=== PATIENT | male | born 1955 | race Caucasian/White ===

== ENCOUNTER 2019-05-21 19:08 | Inpatient (IN) | payer BC, MEDICARE, SELFPAY ==
--- NOTE | ~2019-05-21 | US_ITS ---
EXAMINATION: US venous doppler LE RT DATE: 05/21/2019 21:44 INDICATION: Lower limb swelling TECHNIQUE: Grayscale ultrasound images without and with compression and Doppler ultrasound images of the right lower extremity veins were obtained. COMPARISON: 12/06/2014 FINDINGS: The visualized portions of right common femoral vein, profunda (deep) femoral vein, femoral vein, pop liteal vein, gastrocnemius vein and greater saphenous vein outflow are patent. Noncompressible occlus shalini appearing deep venous thrombosis below the right knee in the paired posterior tibial and peroneal veins at the calf. IMPRESSION: 1. Deep venous thrombosis at the posterior tibial and peroneal veins at the right calf. According to documentation in report provided by [facility], Dr. Dane Beckham discussed these findings with emergency room Dr. Whitman at 9:48 PM on 05/21/2019. Reviewed, dictated and finalized at location A. NSICS TEAM DIRECTOR IMPRESSION: 1. Deep venous thrombosis at the posterior tibial and peroneal veins at the [facility] calf. According to documentation in report provided by [facility], Dr Terese Beckham discussed these findings with emergency room Dr. Whitman at 9:48 PM on 05/21/2019.
[2019-05-21 19:10] VITALS: BP 143/57; PULSE 80; RESP 18; TEMP 36.8; O2SAT 100
--- NOTE | 2019-05-21 19:27 | PC.NURSE ---
Patient reporting numbness and tingling to right lower extremity, pedal pulse able to doppler.
--- NOTE | 2019-05-21 19:29 | ED.LOWEXIN ---
HPI - Extremity Injury (Lower) General Chief Complaint: Extremity Injury, Lower Stated Complaint: DVT? Time Seen by Provider: 05/21/19 19:27 Source: patient Mode of arrival: ambulatory Limitations: no limitations History of Present Illness HPI Narrative: A 64 y/o male pt presents to the ED, with c/o pain, swelling and redness to his RLE that began on (3 days ago). Pt notes having a hx of blood clots and is prescribed Xarelto as his anticoagulation therapy, but he is unsure of the dosage. He adds that he is compliant with his medication and notes taking them this AM. Pt notes having rhinorrhea, diarrhea, and body aches, but denies fever, CP, SOB, or chest congestion. He reports having a hx of cellulitis, but states this is not the same. Pt's PCP is Dr. Sandhu. complaint: other (RLE) Onset (ago): day(s) (3) Associated symptoms: swelling (RLE) and other (redness, pain RLE) Other symptoms: other (rhinorrhea, diarrhea, body aches) Treatments prior to arrival: other (Xarelto) Related Data Allergies Allergy/AdvReac Type Severity Reaction Status Date / Time oxytetracycline Allergy Unknown Unknown Verified 05/21/19 19:15 tetracycline Allergy Unknown HIVES Verified 05/21/19 19:15 OXYTETRACYCLINE HCL Allergy Mild HIVES Uncoded 07/27/16 07:12 Review of Systems Review of Systems: All systems reviewed & are unremarkable except as noted in HPI and below Constitutional: Constitutional: Reports body ache(s) and Denies fever(s) Cardiovascular: Cardiovascular: Denies chest pain and Denies dyspnea Respiratory: Respiratory: Denies chest congestion and Reports other (rhinorrhea) Gastrointestinal: Gastrointestinal: Reports diarrhea Musculoskeletal: Musculoskeletal: Reports other (swelling, pain to RLE) Integumentary/Breasts: Skin/Breast: Reports erythema (RLE) PMFSH Past Medical History Medical History (Updated 05/21/19 @ 22:59 by Antolin Whitman DO) Arthritis Deep vein thrombosis Degenerative disc disease Hypertension Sleep apnea Surgical History Surgical History (Updated 05/21/19 @ 20:50 by VLADISLAV Gotti) History of arthroscopy of right knee History of tonsillectomy Social History Social History (Updated 05/21/19 @ 20:50 by Belkis Ulloa, [facility]) Smoking status: Former smoker Second hand tobacco smoke exposure: No Smoking end date: 03/22/10 Alcohol intake: never Living arrangements: with family Gender identity (if verbalized by the patient): Male Exam Narrative: Exam Narrative: APPEARANCE: No acute distress, nontoxic, resting in bed EYES: EOMI HEENT: Normocephalic, atraumatic, OMM RESPIRATORY: No respiratory distress Clear to auscultation bilaterally with no rhonchi wheezing or rales. CARDIOVASCULAR: Regular rate and rhythm without murmurs rubs or gallops. ABDOMINAL: Soft, nontender, nondistended, no rebound or guarding MUSCULOSKELETAl: Moves all extremities. No clubbing, cyanosis 3+ edema team of the right lower extremity, diffuse erythema of the right lower extremity from the mid foot up to just distal to the knee that is circumferential and covers greater than 50% of the extremity, no open wounds, tenderness palpation of the right calf, dorsalis pedis pulse 2+, neurovascular intact, full range of motion of the right ankle knee and hip without pain NEURO: Awake and alert. Following commands, speech normal, no focal deficits SKIN:: Warm, dry. No rashes lesions or abrasions PSYCHIATRIC: Normal affect/mood, Course Course Emergency Course: Dr. Dowling presentation work-up he agrees admission at this time Discussed with patient and family results of workup and diagnosis. Discussed need for admission. Patient and family understand and agree to current treatment plan Patient ultrasound done this evening prior to the morning results were called to Dr. Dowling Vital Signs Vital signs: Vital Signs Temperature 98.3 F 05/21/19 19:10 Pulse Rate 80 05/21/19 19:10 Respiratory Rate 18
[2019-05-21 20:40] LABS: Basophils Percent Auto 0.4 % (0.2-1.2); Hematocrit 43.1 % (42.0-52.0); Hemoglobin 13.8 g/dL (14.0-18.0); Immature Granulocyte Absolute 0.09 K/mm3 (0.00-0.031); Immature Granulocyte Percent A 0.8 % (0-0.5); Lymphocytes Absolute Auto 0.86 K/mm3 (0.9-3.2); Lymphocytes Percent Auto 7.8 % (18.3-44.2); Mean Corpuscular Hemoglobin 28.2 pg (26-34); Mean Platelet Volume 12.6 fl (7.4-10.4); Monocytes Percent Auto 8.7 % (2.6-8.5); Neutrophils Percent Auto 82.3 % (45.5-73.1); Platelet Count Result 181 k/mm3 (150-375); Red Cell Distribution Width 15.3 % (11.5-14.5)
[2019-05-21 20:51] LABS: INR 2.7; Lactic Acid Reflex 1.2 mmol/L (0.7-2.1); Prothrombin Time 28.4 Seconds (11.1-14.7)
[2019-05-21 20:52] LABS: Blood Urea Nitrogen 15 mg/dL (9-20); Calcium 9.1 mg/dL (8.4-10.2); Carbon Dioxide 27 mmol/L (22-30); Chloride 92 mmol/L (98-107); Estimated CRCL calculation 106 ml/min; Estimated Glomerular Filt Rate > 60; Glucose 123 mg/dL (75-110); Potassium 3.7 mmol/L (3.4-5.0); Sodium 135 mmol/L (137-145)
[2019-05-21 22:15] VITALS: BP 154/80; PULSE 64; RESP 16; TEMP 36.6; O2SAT 100; BMI 38.2
--- NOTE | 2019-05-21 22:27 | ADMGEN ---
This patient, Mark Coffman, was admitted to 3 Medical Room 345-01. Patient/family oriented to hospital policies and general routines including ID bracelet, bed and alarms, visiting hours, pain management, procedures, bathroom and other care routines, personal items, smoking policy, room service/diet, and visiting hours. Valuables list has been completed. Information on how to activate the Rapid Response Team has been discussed. Patient/Family are encouraged to report perceived risks to care and to ask questions if they do not understand what they are told or what they should do.
[2019-05-21 22:35] VITALS: BP 152/80; PULSE 87; RESP 18; O2SAT 98
--- NOTE | 2019-05-22 00:09 | PM.IMHP ---
H&P: HPI History of Present Illness Chief complaint: RLE redness since +++ Narrative: This is a 64 year old male with known HTN and #3 previous DVT in the past who is known to be on chronic Xarelto who presented to the hospital with a complaint of circumferential redness and swelling of his right lower leg that started approximately 3 days ago. The patient's last blood clot was over 10 years ago and he has been doing well on Xarelto. He denies missing any doses. He does report that he recently was diagnosed with RLE cellulitis about 1 month ago which did clear up with antibiotic therapy at that time. He denies any shortness of breath or chest pain. The patient underwent STAT RLE doppler U/S tonight which revealed occlusive thrombus within the peroneal and posterior tibial veins in the calf. The patient has been started on IV antibiotics in the ER tonight. He denies any other symptoms. Review of Systems Review of Systems: All systems reviewed & are unremarkable except as noted in HPI and below PMFSH Past Medical History Medical History Arthritis Deep vein thrombosis Degenerative disc disease Hypertension Sleep apnea Surgical History Surgical History History of arthroscopy of right knee History of tonsillectomy Social History Social History Smoking status: Never smoker Second hand tobacco smoke exposure: No Smoking end date: 03/22/10 Alcohol intake: never Substance use: never Living arrangements: with family Gender identity (if verbalized by the patient): Male Spiritual care concerns: No Agree to blood products: Yes Meds Home Medications and Allergies Home Medications Medication Instructions Recorded Confirmed Type rivaroxaban 20 mg tablet 20 mg PO DAILY #90 tablet 03/10/19 05/21/19 Rx simvastatin 40 mg tablet 40 mg PO DAILY #90 tablet 05/09/19 05/21/19 Rx Allergies Allergy/AdvReac Type Severity Reaction Status Date / Time oxytetracycline Allergy Unknown Unknown Verified 05/21/19 19:15 tetracycline Allergy Unknown HIVES Verified 05/21/19 19:15 OXYTETRACYCLINE HCL Allergy Mild HIVES Uncoded 07/27/16 07:12 Vital Signs Vital Signs - 24 hr 05/21/19 19:10 05/21/19 22:15 05/21/19 22:35 Temperature 36.8 C 36.6 C Pulse Rate 80 64 87 Respiratory Rate 18 16 18 Blood Pressure 143/57 H 154/80 H 152/80 H Pulse Oximetry 100 100 98 Exam Const: General: cooperative, no acute distress, alert and awake Nutritional Appearance: obese morbidly obese Orientation/consciousness: patient oriented x3 HENMT: Head: normal to inspection General nose exam: Normal external nose present Face and sinus: normal facial exam Mouth: Yes Normal oral and palatal mucosa present and Yes oropharynx normal Eyes: Pupils: Equal, round and reactive pupils present EOM: EOMs intact bilaterally Neck: Neck: supple and no JVD Thyroid: thyroid normal Lymphatic: lymphadenopathy not noted Resp: Effort & Inspection: normal respiratory effort Auscultation: clear to auscultation bilaterally Cardio: Rate: regular rate Rhythm: regular rhythm Heart sounds: no murmurs GI: Inspection: normal to inspection Auscultation: normal bowel sounds Skin: General skin exam: normal color and erythema (RLE++++) Neuro: General: patient oriented x3 Cranial nerves: Yes CN's II-XII intact bilaterally and Yes Equal, round and reactive pupils present Speech: normal speech Motor exam (neuro): 5/5 motor strength present throughout Sensory Exam: normal sensation Extrem: General: calf tenderness (RLE) and edema (RLE+++) Psych: Mental Status: mental status grossly normal Affect: normal affect H&P: Results Labs Labs: Short CBC 05/21/19 Range/Units 20:31 WBC 11.0 H (4.5-10.0) K/mm3 Hgb 13.8 L (14.0-18.0) g/dL Hct 43.1 (42.0-52.0) % Plt Coun
[2019-05-22] MEDS: HEPARIN SOD/D5W 100 UNITS/ML 25,000 UNITS/250 ML BAG 15 UNITS IV CONT (00:32)
[2019-05-22] MEDS: HEPARIN SODIUM 5,000 UNITS/ML VIAL 8000 UNITS IV PUSH ×3 (00:32→20:06)
[2019-05-22 00:49] LABS: INR 2.2; Prothrombin Time 24.3 Seconds (11.1-14.7)
[2019-05-22 06:00] VITALS: BP 139/73; PULSE 60; RESP 16; TEMP 36.9; O2SAT 98
[2019-05-22 06:26] LABS: Basophils Absolute Auto 0.1 K/mm3 (0.0-0.1); Basophils Percent Auto 0.5 % (0.2-1.2); Eosinophils Percent Auto 0.1 % (0-4.4); Hematocrit 35.7 % (42.0-52.0); Hemoglobin 11.4 g/dL (14.0-18.0); Immature Granulocyte Absolute 0.09 K/mm3 (0.00-0.031); Immature Granulocyte Percent A 0.9 % (0-0.5); Lymphocytes Absolute Auto 0.96 K/mm3 (0.9-3.2); Lymphocytes Percent Auto 9.2 % (18.3-44.2); Mean Corpuscular HGB Conc 31.9 g/dl (32-36); Mean Corpuscular Hemoglobin 28.2 pg (26-34); Mean Corpuscular Volume 88.4 fl (80-100); Mean Platelet Volume 11.5 fl (7.4-10.4); Monocytes Absolute Auto 0.9 K/mm3 (0.1-0.6); Monocytes Percent Auto 8.8 % (2.6-8.5); Neutrophils Absolute Auto 8.4 K/mm3 (1.3-6.7); Neutrophils Percent Auto 80.5 % (45.5-73.1); Platelet Count Result 136 k/mm3 (150-375); Red Blood Count 4.04 M/mm3 (4.6-6.20); Red Cell Distribution Width 14.8 % (11.5-14.5); White Blood Count 10.4 K/mm3 (4.5-10.0)
[2019-05-22 06:32] LABS: Blood Urea Nitrogen 19 mg/dL (9-20); Calcium 7.9 mg/dL (8.4-10.2); Carbon Dioxide 27 mmol/L (22-30); Chloride 96 mmol/L (98-107); Estimated CRCL calculation 142 ml/min; Estimated Glomerular Filt Rate > 60; Glucose 145 mg/dL (75-110); Potassium 3.9 mmol/L (3.4-5.0); Sodium 134 mmol/L (137-145)
[2019-05-22 06:37] LABS: Partial Thromboplastin Time 62.3 SECONDS (22.3-36.8)
[2019-05-22] MEDS: HEPARIN SODIUM 5,000 UNITS/ML VIAL 4000 UNITS IV PUSH (06:56)
[2019-05-22 08:27] LABS: Glucose Point of Care 176 (65-105)
[2019-05-22] MEDS: SIMVASTATIN 20 MG TABLET 40 MG PO (08:33)
[2019-05-22] MEDS: ACETAMINOPHEN 325 MG TABLET 650 MG PO ×2 (10:44→19:49)
[2019-05-22 13:21] LABS: Partial Thromboplastin Time 34.4 SECONDS (22.3-36.8)
[2019-05-22 14:00] VITALS: BP 150/62; PULSE 72; RESP 16; TEMP 36.9; O2SAT 98
--- NOTE | 2019-05-22 17:30 | PM.IMPN ---
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 patient had been taking Xarelto presented emergency department with a complaint redness swelling and painful right lower extremity, lower extremity Doppler showed patient has a DVT as well as cellulitis, it seems the patient has failed with Xarelto and was placed on heparin, will consult expert witness for further recommendation, we have started the patient on cefazolin for cellulitis, current patient denies any chest pain shortness of breath palpitation fever or chills, he does complaint of pain in his right lower extremity (2) Hypertension: Qualifiers: Hypertension type: unspecified Qualified Code(s): I10 - Essential (primary) hypertension Code(s): I10 - Essential (primary) hypertension Status: Acute Assessment and Plan: Monitor blood pressure. (3) Hyperlipidemia: Qualifiers: Hyperlipidemia type: unspecified Qualified Code(s): E78.5 - Hyperlipidemia, unspecified Code(s): E78.5 - Hyperlipidemia, unspecified Status: Acute Assessment and Plan: Continue simvastatin. 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 we will obtain a Hematology consult in am to consider another anticoagulant vs. IVC filter placement. 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 to 10 years patient had been taking Xarelto presented emergency department with a complaint redness swelling and painful right lower extremity, lower extremity Doppler showed patient has a DVT as well as cellulitis, it seems the patient has failed with Xarelto and was placed on heparin, will consult expert witness for further recommendation, we have started the patient on cefazolin for cellulitis, current patient denies any chest pain shortness of breath palpitation fever or chills, he does complaint of pain in his right lower extremity Review of Systems Review of Systems: All systems reviewed & are unremarkable except as noted in HPI and below Exam Narrative: Exam Narrative: Moderately obese Const: General: no acute distress and uncomfortable HENMT: General nose exam: Normal nares present Mouth: Yes moist mucous membranes Eyes: General: appearance normal, both eyes and all related structures Sclera: sclerae normal Neck: Neck: supple Resp: Effort & Inspection: normal respiratory effort Auscultation: clear to auscultation bilaterally Cardio: Rate: regular rate Rhythm: regular rhythm GI: Auscultation: normal bowel sounds Skin: Other: Right lower extremity below the knee to the ankle erythematous. No induration or red streaks Neuro: Speech: normal speech Sensory Exam: normal sensation Extrem: General: normal to inspection Psych: Affect: Anxious affect present Objective Data Vital Signs Vital Signs: Vital Signs - 24 hr 05/21/19 19:10 05/21/19 22:15 05/21/19 22:35 Temperature 98.3 F 97.8 F Pulse Rate 80 64 87 Respiratory Rate 18 16 18 Blood Pressure 143/57 H 154/80 H 152/80 H Pulse Oximetry 100 100 98 05/22/19 06:00
[2019-05-22 19:56] LABS: Partial Thromboplastin Time 38.8 SECONDS (22.3-36.8)
--- NOTE | 2019-05-22 20:19 | PC.NURSE ---
PTT at 1999 was 38.8. This RN went to adjust heparin drip per protocol and after giving the 8,000 unit bolus it was noticed that the drip was still going at 17ml/hr when it had been entered in the computer that the rate had previously been adjusted to 21ml/hr. Called pharmacy to notify them and they said to just go ahead and increase the rate by 4ml/hr per protocol and set the pump to 21ml/hr
[2019-05-22 22:00] VITALS: BP 116/72; PULSE 95; RESP 16; TEMP 37.1; O2SAT 100
[2019-05-23 02:14] LABS: Basophils Absolute Auto 0.1 K/mm3 (0.0-0.1); Basophils Percent Auto 0.6 % (0.2-1.2); Eosinophils Percent Auto 0.1 % (0-4.4); Hematocrit 34.6 % (42.0-52.0); Hemoglobin 11.2 g/dL (14.0-18.0); Immature Granulocyte Absolute 0.28 K/mm3 (0.00-0.031); Lymphocytes Absolute Auto 1.64 K/mm3 (0.9-3.2); Lymphocytes Percent Auto 11.9 % (18.3-44.2); Mean Corpuscular HGB Conc 32.4 g/dl (32-36); Mean Corpuscular Hemoglobin 28.4 pg (26-34); Mean Corpuscular Volume 87.6 fl (80-100); Mean Platelet Volume 11.1 fl (7.4-10.4); Monocytes Absolute Auto 1.5 K/mm3 (0.1-0.6); Monocytes Percent Auto 11.1 % (2.6-8.5); Neutrophils Absolute Auto 10.2 K/mm3 (1.3-6.7); Neutrophils Percent Auto 74.3 % (45.5-73.1); Platelet Count Result 144 k/mm3 (150-375); Red Blood Count 3.95 M/mm3 (4.6-6.20); Red Cell Distribution Width 14.7 % (11.5-14.5); White Blood Count 13.8 K/mm3 (4.5-10.0)
[2019-05-23 02:22] LABS: Partial Thromboplastin Time 44.3 SECONDS (22.3-36.8)
[2019-05-23] MEDS: HEPARIN SODIUM 5,000 UNITS/ML VIAL 8000 UNITS IV PUSH ×2 (02:28→16:57)
[2019-05-23] MEDS: HEPARIN SOD/D5W 100 UNITS/ML 25,000 UNITS/250 ML BAG 25 UNITS IV CONT (03:23)
[2019-05-23] MEDS: ACETAMINOPHEN 325 MG TABLET 650 MG PO ×2 (05:23→19:36)
--- NOTE | 2019-05-23 05:36 | CONS_ITS ---
DATE OF CONSULTATION: 05/22/2019 REASON FOR CONSULTATION: Hypercoagulable state. HISTORY OF PRESENTING ILLNESS: This is a pleasant 64-year-old obese male, who has a history of recurrent DVT, initially diagnosed more than 10 years ago involving right lower extremity. He was initially treated with Coumadin. He had subsequent DVT diagnosed in the left lower extremity. He was started on Xarelto almost 10 years ago. He came into the hospital with increasing swelling and redness in the right lower extremity for the last 3 days prior to his admission. He denies any chest pain, any shortness of breath. He denies being noncompliant with his Xarelto. Doppler studies were performed that showed occlusive thrombus involving the peroneal and posterior tibial vein in the calf. He was also started on IV antibiotic due to cellulitis. He is already feeling slightly better with swelling and redness in the right lower extremity. REVIEW OF SYSTEMS: 12-point review of systems were reviewed and as per HPI, otherwise negative. PAST MEDICAL HISTORY: History of bilateral lower extremity DVT, degenerative disk disease, hypertension, and sleep apnea. PAST SURGICAL HISTORY: Arthroscopy of the right knee, tonsillectomy. HOME MEDICATIONS: Reviewed. ALLERGIES: REVIEWED. SOCIAL HISTORY: The patient denies any history of smoking and drinking. The patient is . He is retired. FAMILY HISTORY: Patient denies any family history of thromboembolic events. PHYSICAL EXAMINATION: GENERAL: This patient is a well-developed, well-nourished , obese male in no apparent distress. Alert and oriented. VITAL SIGNS: Per nursing note. HEENT: Normocephalic, atraumatic. Clear oropharynx. LUNGS: Clear to auscultation bilaterally. CARDIOVASCULAR: Regular rate and rhythm. No murmurs. ABDOMEN: Soft, nontender, nondistended. Bowel sounds are positive in all 4 quadrants. No hepatosplenomegaly. EXTREMITIES: Right lower extremity edema with cellulitis. LABORATORY DATA: WBC 10.4, hemoglobin 11.4, platelets 136,000. Neutrophils 80%. INR 2.2. PTT 62.3, creatinine 0.6, calcium 7.9. ASSESSMENT AND PLAN: 1. Hypercoagulable state with history of recurrent bilateral lower extremity DVT. The patient was initially diagnosed with right lower extremity DVT more than 10 years ago. He has been on Xarelto for at least 10 years duration. The patient now had DVT involving the posterior tibial and peroneal vein of the right calf. There is also an element of cellulitis. The patient is currently receiving IV heparin as well as Ancef for the cellulitis, with improvement in the right lower extremity cellulitis and discomfort. I would suggest starting him on Eliquis 10 mg b.i.d. for 7 days then 5 mg b.i.d. after completion of IV heparin with improvement. The patient will continue long-term anticoagulation therapy. I plan to see him in the office in couple of months with repeat Doppler studies. I have provided him my office information. 2. Right lower extremity cellulitis. The patient is on Ancef. I have answered all the questions to the patient's satisfaction. RONALDO KING M.D. TRAINING DEVELOPER TRAINING DEVELOPER D I MT: Paul
[2019-05-23 06:00] VITALS: BP 135/62; PULSE 67; RESP 16; TEMP 37.1; O2SAT 98
[2019-05-23] MEDS: SIMVASTATIN 20 MG TABLET 40 MG PO (08:22)
[2019-05-23 09:20] LABS: Partial Thromboplastin Time 65.2 SECONDS (22.3-36.8)
[2019-05-23] MEDS: HEPARIN SODIUM 5,000 UNITS/ML VIAL 4000 UNITS IV PUSH (09:30)
--- NOTE | 2019-05-23 11:23 | PC.NURSE ---
Spoke with pharmacy regarding stopping the heparin drip and starting the eliquis. Ok to stop heparin after the first dose of eliquis is given this evening.
--- NOTE | 2019-05-23 13:04 | WPDONCPN ---
Progress Note: A/P - Additional Plan Hypercoagulable state with recurrent lower extremity DVT. Patient is on heparin and improvement noted. Patient will be discharged home on Eliquis 5 mg b.i.d.. I will see him in the office in couple of months to repeat the Doppler studies. Right lower extremity cellulitis. There is improvement with IV antibiotic. Anemia. Unclear etiology. I will order basic anemia workup including iron studies and retic count LDH and B12 level. Patient should be able to go home in next 1-2 days. - Time Spent With Patient Total time spent is greater than 50% in coordination of care (as documented) at patient's floor/unit and/or counseling patient: 15 - 25 minutes Subjective Interval history: Bilateral lower extremity DVT Right lower extremity cellulitis Anemia Review of Systems - Review of Systems Patient is feeling better without any chest pain and shortness of breath. Improvement in right lower extremity cellulitis and swelling. No other new complaints. Exam Vital signs: Temp Pulse Resp BP Pulse Ox 37.1 C 67 16 135/62 98 05/23/19 06:00 05/23/19 06:00 05/23/19 06:00 05/23/19 06:00 05/23/19 06:00 Narrative: Lungs are clear to auscultation bilaterally Cardiovascular regular rate rhythm no murmurs Abdomen soft nontender nondistended Extremities right lower extremity cellulitis with improvement in swelling. PN: Objective Data - Labs CBC & Chem 7: 05/23/19 02:06 05/22/19 06:15 Labs: Laboratory Results - last 24 hr 05/22/19 05/22/19 05/23/19 12:55 19:37 02:06 WBC 13.8 H RBC 3.95 L Hgb 11.2 L Hct 34.6 L MCV 87.6 MCH 28.4 MCHC 32.4 RDW 14.7 H Plt Count 144 L MPV 11.1 H Immature Gran % (Auto) 2.0 H Neut % (Auto) 74.3 H Lymph % (Auto) 11.9 L Sanders % (Auto) 11.1 H Eos % (Auto) 0.1 Baso % (Auto) 0.6 Lymph # (Auto) 1.64 Sanders # (Auto) 1.5 H Eos # (Auto) 0.0 Baso # (Auto) 0.1 Abs Immat Gran (auto) 0.28 H Absolute Neuts (auto) 10.2 H Absolute Nucleated RBC 0.0 Nucleated RBC % 0.0 APTT 34.4 38.8 H 05/23/19 05/23/19 02:06 08:53 WBC RBC Hgb Hct MCV MCH MCHC RDW Plt Count MPV Immature Gran % (Auto) Neut % (Auto) Lymph % (Auto) Sanders % (Auto) Eos % (Auto) Baso % (Auto) Lymph # (Auto) Sanders # (Auto) Eos # (Auto) Baso # (Auto) Abs Immat Gran (auto) Absolute Neuts (auto) Absolute Nucleated RBC Nucleated RBC % APTT 44.3 H 65.2 H
[2019-05-23 14:00] VITALS: BP 131/64; PULSE 72; RESP 16; TEMP 36.9; O2SAT 98
[2019-05-23 16:09] LABS: Partial Thromboplastin Time 33.7 SECONDS (22.3-36.8)
[2019-05-23 16:12] LABS: Lactate Dehydrogenase 424 U/L (313-618)
[2019-05-23 16:17] LABS: Reticulocytes Absolute 0.04 B/L (32.2-175.7)
[2019-05-23 16:18] LABS: Immature Reticulocyte Fraction 15.4 % (3.0-15.9); Reticulocyte Hemoglobin Conten 27.1 pg (28.2-35.7); Reticulocyte Percent 1.07 % (0.7-4.3)
[2019-05-23 16:28] LABS: Iron 28 ug/dL (49-181)
[2019-05-23 16:37] LABS: Percent Iron Saturation 13 % (20-50)
--- NOTE | 2019-05-23 17:54 | PM.IMPN ---
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 to 10 years patient had been taking Xarelto presented emergency department with a complaint redness swelling and painful right lower extremity, lower extremity Doppler showed patient has a DVT as well as cellulitis, it seems the patient has failed with Xarelto and was placed on heparin, will consult brood station manager for further recommendation, we have started the patient on cefazolin for cellulitis, current patient denies any chest pain shortness of breath palpitation fever or chills, he does complaint of pain in his right lower extremity, today patient states the redness swelling and pain has improved in his right lower leg, patient was seen by brood station manager recommending to switch over to Eliquis, he denies any fever or chill, if the cellulitis improved will discharge the patient home tomorrow (2) Hypertension: Qualifiers: Hypertension type: unspecified Qualified Code(s): I10 - Essential (primary) hypertension Code(s): I10 - Essential (primary) hypertension Status: Acute Assessment and Plan: Monitor blood pressure. (3) Hyperlipidemia: Qualifiers: Hyperlipidemia type: unspecified Qualified Code(s): E78.5 - Hyperlipidemia, unspecified Code(s): E78.5 - Hyperlipidemia, unspecified Status: Acute Assessment and Plan: Continue simvastatin. 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 we will obtain a Hematology consult in am to consider another anticoagulant vs. IVC filter placement. 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 to 10 years patient had been taking Xarelto presented emergency department with a complaint redness swelling and painful right lower extremity, lower extremity Doppler showed patient has a DVT as well as cellulitis, it seems the patient has failed with Xarelto and was placed on heparin, will consult brood station manager for further recommendation, we have started the patient on cefazolin for cellulitis, current patient denies any chest pain shortness of breath palpitation fever or chills, he does complaint of pain in his right lower extremity, today patient states the redness swelling and pain has improved in his right lower leg, patient was seen by brood station manager recommending to switch over to Eliquis, he denies any fever or chill, if the cellulitis improved will discharge the patient home tomorrow Review of Systems Review of Systems: All systems reviewed & are unremarkable except as noted in HPI and below Exam Narrative: Exam Narrative: Moderately obese Const: General: comfortable and no acute distress HENMT: General nose exam: Normal nares present Mouth: Yes moist mucous membranes Eyes: General: appearance normal, both eyes and all related structures Sclera: sclerae normal Neck: Neck: supple Resp: Effort & Inspection: normal respiratory effort Auscultation: clear to auscultation bilaterally Cardio: Rate: regular rate Rhythm: regular rhythm GI: Auscultation: normal bowel sounds Skin: Other:
[2019-05-23] MEDS: APIXABAN 5 MG TABLET 10 MG PO (21:07)
[2019-05-23 22:00] VITALS: BP 118/58; PULSE 66; RESP 18; TEMP 36.6; O2SAT 98
--- NOTE | 2019-05-24 | ECHO_ITS ---
Patient Info Name: Mark Coffman Age: 64 years : 1955 Gender: Male Ht: 72 in Wt: 281 lbs BSA: 2.59 m2 HR: 67 bpm BP: 120 / 53 mmHg Heart Rhythm: Sinus Rhythm Technical Quality: Good Exam Date: 05/24/2019 11:16 AM Exam Location: [facility] Patient Status: Inpatient Admit Date: 05/23/2019 Staff Ordering Physician: Jesus Avery MD Cabin Service Agent: Garret Nolan, VERITO, RT Attending Provider: Jesus Avery MD Exam Type: CA echo doppler color flow Study Info Indications R60.0 - Localized edema Complete two-dimensional, color flow and Doppler transthoracic echocardiogram is performed. Summary 1. Left ventricular systolic function is normal, estimated at 65-70%. 2. Left ventricular chamber dimension is normal. 3. No significant valvular abnormality. 4. No findings that explain peripheral edema. Left Ventricle Left ventricular chamber dimension is normal. Left ventricular systolic function is normal, estimated at 65-70%. The left ventricular diastolic function is normal. Right Ventricle Right ventricular chamber dimension is normal. Left Atria Left atrial chamber dimension is normal. Right Atria Right atrial chamber dimension is normal. Aortic Valve The aortic valve is trileaflet. There is mild aortic valve sclerosis. Pulmonic Valve The pulmonic valve is not well visualized. Mitral Valve The mitral valve has normal leaflets and calcified annulus. Tricuspid Valve The tricuspid valve leaflets are normal. Pericardium/Pleural The pericardium appears normal. Aorta The aortic root size at the sinus of Valsalva is normal. Left Ventricular Outflow Tract Name Value Normal LVOT 2D LVOT Diameter 2.1 cm LVOT Doppler LVOT Peak Gradient 7 mmHg LVOT Mean Gradient 4 mmHg LVOT VTI 30 cm LVOT VTI/AV VTI Ratio 0.5 LVOT Stroke Volume 104 ml LVOT CO 6.0 l/min LVOT CI 2.3 l/min/m2 Pulmonic Valve Name Value Normal PV Doppler PV Peak Gradient 7 mmHg Mitral Valve Name Value Normal MV Doppler MV Decel [place] 232 cm/s2 MV PHT 96 ms MV Area (PHT) 2.3 cm2 4.0-5.0 MV Diastolic Function MV E Peak Velocity 77 cm/s MV A Peak Velocity 56 cm/s
[2019-05-24 06:00] VITALS: BP 120/53; PULSE 63; RESP 16; TEMP 36.9; O2SAT 98
[2019-05-24 06:03] LABS: Hematocrit 33.3 % (42.0-52.0); Hemoglobin 10.8 g/dL (14.0-18.0); Mean Corpuscular HGB Conc 32.4 g/dl (32-36); Mean Corpuscular Hemoglobin 27.8 pg (26-34); Mean Corpuscular Volume 85.8 fl (80-100); Mean Platelet Volume 11.4 fl (7.4-10.4); Platelet Count Result 194 k/mm3 (150-375); Red Blood Count 3.88 M/mm3 (4.6-6.20); Red Cell Distribution Width 14.8 % (11.5-14.5); White Blood Count 16.3 K/mm3 (4.5-10.0)
[2019-05-24] MEDS: SIMVASTATIN 20 MG TABLET 40 MG PO (08:10)
[2019-05-24] MEDS: APIXABAN 5 MG TABLET 10 MG PO ×2 (08:10→20:14)
[2019-05-24] MEDS: ACETAMINOPHEN 325 MG TABLET 650 MG PO ×2 (08:10→20:13)
[2019-05-24 13:50] LABS: Potassium 3.7 mmol/L (3.4-5.0)
[2019-05-24 13:52] LABS: Blood Urea Nitrogen 11 mg/dL (9-20); Calcium 8.5 mg/dL (8.4-10.2); Carbon Dioxide 29 mmol/L (22-30); Chloride 95 mmol/L (98-107); Estimated CRCL calculation 142 ml/min; Estimated Glomerular Filt Rate > 60; Glucose 114 mg/dL (75-110); Sodium 137 mmol/L (137-145)
[2019-05-24 14:00] VITALS: BP 138/54; PULSE 67; RESP 14; TEMP 37.1; O2SAT 100
[2019-05-24] MEDS: FUROSEMIDE INJ 40 MG/4 ML VIAL 20 MG IV PUSH (14:09)
--- NOTE | 2019-05-24 16:09 | PM.IMPN ---
Progress Note: A&P Assessment and Plan (1) Acute deep vein thrombosis (DVT) of right lower extremity: Qualifiers: Affected thrombotic vein of extremity: tibial Qualified Code(s): I82.441 - Acute embolism and thrombosis of right tibial vein Code(s): I82.401 - Acute embolism and thrombosis of unspecified deep veins of right lower extremity Status: Acute Assessment and Plan: 05/24/19 16:09 Patient is 64-year-old male with history of chronic DVT on the right lower extremity for close to 10 years patient had been taking Xarelto presented emergency department with a complaint redness swelling and painful right lower extremity, lower extremity Doppler showed patient has a DVT as well as cellulitis, it seems the patient has failed with Xarelto and was placed on heparin, will consult broadcast designer for further recommendation, we have started the patient on cefazolin for cellulitis, current patient denies any chest pain shortness of breath palpitation fever or chills, he does complaint of pain in his right lower extremity, today patient states the redness swelling and pain has improved in his right lower leg, patient was seen by broadcast designer recommending to switch over to Eliquis, Patient is switched over to Eliquis, however today patient states the redness swelling and pain in his right lower extremity is getting, he denies any fever or chills, will get the patient know does Lasix, will continue Ancef will monitor him overnight have been elevated his legs and rechecking tomorrow (2) Hypertension: Qualifiers: Hypertension type: unspecified Qualified Code(s): I10 - Essential (primary) hypertension Code(s): I10 - Essential (primary) hypertension Status: Acute Assessment and Plan: Monitor blood pressure. (3) Hyperlipidemia: Qualifiers: Hyperlipidemia type: unspecified Qualified Code(s): E78.5 - Hyperlipidemia, unspecified Code(s): E78.5 - Hyperlipidemia, unspecified Status: Acute Assessment and Plan: Continue simvastatin. (4) Chronic anticoagulation: Code(s): Z79.01 - [facility] (current) use of anticoagulants Status: Chronic Assessment and Plan: The patient has failed anticoagulation w/ Xarelto. we will obtain a Hematology consult in am to consider another anticoagulant vs. IVC filter placement. (5) Cellulitis of leg, right: Code(s): L03.115 - Cellulitis of right lower limb Status: Acute Assessment and Plan: Started the patient on cefazolin will monitor will follow up on blood culture Subjective Date/time seen: 05/24/19 16:09 Patient is 64-year-old male with history of chronic DVT on the right lower extremity for close to 10 years patient had been taking Xarelto presented emergency department with a complaint redness swelling and painful right lower extremity, lower extremity Doppler showed patient has a DVT as well as cellulitis, it seems the patient has failed with Xarelto and was placed on heparin, will consult broadcast designer for further recommendation, we have started the patient on cefazolin for cellulitis, current patient denies any chest pain shortness of breath palpitation fever or chills, he does complaint of pain in his right lower extremity, today patient states the redness swelling and pain has improved in his right lower leg, patient was seen by broadcast designer recommending to switch over to Eliquis, Patient is switched over to Eliquis, however today patient states the redness swelling and pain in his right lower extremity is getting, he denies any fever or chills, will get the patient know does Lasix, will continue Ancef will monitor him overnight have been elevated his legs and rechecking tomorrow Review of Systems Review of Systems: All systems reviewed & are unremarkable except as noted in HPI and below Exam Narrative: Exam Narrative: Moderately obese Const: General: comfortable and no acute distress HEN
[2019-05-24 20:54] VITALS: BP 114/55; PULSE 65; RESP 18; TEMP 36.2; O2SAT 100
[2019-05-25] MEDS: ACETAMINOPHEN 325 MG TABLET 650 MG PO ×3 (05:27→21:47)
[2019-05-25 06:00] VITALS: BP 110/64; PULSE 60; RESP 16; TEMP 36.6; O2SAT 96
[2019-05-25 06:26] LABS: Hematocrit 31.1 % (42.0-52.0); Hemoglobin 10.2 g/dL (14.0-18.0); Mean Corpuscular HGB Conc 32.8 g/dl (32-36); Mean Corpuscular Hemoglobin 28.3 pg (26-34); Mean Corpuscular Volume 86.1 fl (80-100); Mean Platelet Volume 11.2 fl (7.4-10.4); Platelet Count Result 253 k/mm3 (150-375); Red Blood Count 3.61 M/mm3 (4.6-6.20); Red Cell Distribution Width 14.6 % (11.5-14.5); White Blood Count 15.7 K/mm3 (4.5-10.0)
[2019-05-25] MEDS: SIMVASTATIN 20 MG TABLET 40 MG PO (08:08)
[2019-05-25] MEDS: APIXABAN 5 MG TABLET 10 MG PO ×2 (08:08→21:46)
[2019-05-25] MEDS: FUROSEMIDE INJ 40 MG/4 ML VIAL 20 MG IV PUSH (11:17)
[2019-05-25 14:00] VITALS: BP 127/53; PULSE 70; RESP 16; TEMP 37.2; O2SAT 95
--- NOTE | 2019-05-25 14:52 | PM.IMPN ---
Progress Note: A&P Assessment and Plan (1) Acute deep vein thrombosis (DVT) of right lower extremity: Qualifiers: Affected thrombotic vein of extremity: tibial Qualified Code(s): I82.441 - Acute embolism and thrombosis of right tibial vein Code(s): I82.401 - Acute embolism and thrombosis of unspecified deep veins of right lower extremity Status: Acute Assessment and Plan: 05/25/19 14:52 Patient is 64-year-old male with history of chronic DVT on the right lower extremity for close to 10 years patient had been taking Xarelto presented emergency department with a complaint redness swelling and painful right lower extremity, lower extremity Doppler showed patient has a DVT as well as cellulitis, it seems the patient has failed with Xarelto and was placed on heparin, will consult cripple chaser for further recommendation, we have started the patient on cefazolin for cellulitis, current patient denies any chest pain shortness of breath palpitation fever or chills, he does complaint of pain in his right lower extremity, today patient states the redness swelling and pain has improved in his right lower leg, patient was seen by cripple chaser recommending to switch over to Eliquis, Patient is switched over to Eliquis, however on 05/23 patient stated the redness swelling and pain in his right lower extremity was getting, he denies any fever or chills, patient was given low dose of lasix IV 20mg, continued Ancef and instructed keep the leg elevated, today again patient complains of redness swelling and pain right lower extremity, it has improved compared to yesterday however still quite red and swallowing, will give him another dose IV Lasix 20 mg will monitor him overnight and possibly discharge him tomorrow, his already started on Eliquis for DVT. (2) Hypertension: Qualifiers: Hypertension type: unspecified Qualified Code(s): I10 - Essential (primary) hypertension Code(s): I10 - Essential (primary) hypertension Status: Acute Assessment and Plan: Monitor blood pressure. (3) Hyperlipidemia: Qualifiers: Hyperlipidemia type: unspecified Qualified Code(s): E78.5 - Hyperlipidemia, unspecified Code(s): E78.5 - Hyperlipidemia, unspecified Status: Acute Assessment and Plan: Continue simvastatin. 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 we will obtain a Hematology consult in am to consider another anticoagulant vs. IVC filter placement. (5) Cellulitis of leg, right: Code(s): L03.115 - Cellulitis of right lower limb Status: Acute Assessment and Plan: Started the patient on cefazolin will monitor will follow up on blood culture Additional Plan Date of service was 05/21/2019 at 23:00 hrs. Subjective Date/time seen: 05/25/19 14:52 Patient is 64-year-old male with history of chronic DVT on the right lower extremity for close to 10 years patient had been taking Xarelto presented emergency department with a complaint redness swelling and painful right lower extremity, lower extremity Doppler showed patient has a DVT as well as cellulitis, it seems the patient has failed with Xarelto and was placed on heparin, will consult cripple chaser for further recommendation, we have started the patient on cefazolin for cellulitis, current patient denies any chest pain shortness of breath palpitation fever or chills, he does complaint of pain in his right lower extremity, today patient states the redness swelling and pain has improved in his right lower leg, patient was seen by cripple chaser recommending to switch over to Eliquis, Patient is switched over to Eliquis, however on 05/23 patient stated the redness swelling and pain in his right lower extremity was getting, he denies any fever or chills, patient was given low dose of
[2019-05-25 21:08] VITALS: BP 124/56; PULSE 62; RESP 16; TEMP 36.8; O2SAT 97
[2019-05-26 04:59] VITALS: BP 116/52; PULSE 61; RESP 16; TEMP 37.4; O2SAT 96
[2019-05-26 06:06] LABS: Hematocrit 31.9 % (42.0-52.0); Hemoglobin 10.2 g/dL (14.0-18.0); Mean Corpuscular Volume 87.6 fl (80-100); Mean Platelet Volume 10.9 fl (7.4-10.4); Platelet Count Result 320 k/mm3 (150-375); Red Blood Count 3.64 M/mm3 (4.6-6.20); Red Cell Distribution Width 14.7 % (11.5-14.5); White Blood Count 15.4 K/mm3 (4.5-10.0)
[2019-05-26] MEDS: SIMVASTATIN 20 MG TABLET 40 MG PO (08:22)
[2019-05-26] MEDS: APIXABAN 5 MG TABLET 10 MG PO (08:22)
--- NOTE | 2019-05-26 09:57 | PM.DS ---
DS: Diagnosis Admitting Diagnosis Admitting Diagnosis: Acute embolism and thrombosis of right tibial vein DS: Summary Time Spent with Patient Time attestation: Total time spent providing and/or coordinating discharge services: DS: Data Data Completed and Pending Labs on day of discharge: Labs from last 24 hours 05/26/19 05:32 WBC 15.4 H RBC 3.64 L Hgb 10.2 L Hct 31.9 L MCV 87.6 MCH 28.0 MCHC 32.0 RDW 14.7 H Plt Count 320 MPV 10.9 H Preliminary micro results at discharge 05/21/19 20:31 Blood Culture - Preliminary Blood 05/21/19 20:31 Blood Culture - Preliminary Blood Discharge Plan Discharge Attending physician on discharge: Jesus Avery Consulting providers: Vitor Blank Discharging Clinician: Jesus Avery Patient Disposition: Home, Self-Care Activity: as tolerated Diet: heart healthy Discharge Instructions: Patient is instructed to do gentle walking and activitiesa and avoid extra activities until seen by his primary care provider, patient is instructed if any symptoms redevelop to go to nearest ER. Patient Instructions: Antibiotic Form, Cefazolin (By injection), Heparin (By injection), Apixaban (By mouth), Cellulitis (DC), Deep Vein Thrombosis (DC) Stand Alone Forms: General Discharge Information Follow-up/Referrals: Ruddy Sandhu DO [Primary Care Provider] - 1 Week (Follow up with BRENDAN Combs at Dr. Sandhu's office on 05/31/2019 at 9:45 am.) Discharge Medications: New cephalexin 500 mg capsule 500 mg PO Q8H Qty: 21 RF: 0 Eliquis 5 mg Tablet 10 mg PO Q12HR Qty: 10 RF: 0 Eliquis 5 mg Tablet 5 mg PO Q12HR Qty: 60 RF: 0 Continued simvastatin 40 mg tablet 40 mg PO DAILY Qty: 90 RF: 3 Discontinued Xarelto 20 mg tablet 20 mg PO DAILY Qty: 90 RF: 1 Date of admission: 05/23/19 14:52 Primary Care Provider: Ruddy Sandhu Admitting Provider: Edu Dowling Attending physician on admission: Jesus Avery Condition: Stable Quality VTE Prophylaxis VTE prophylaxis: pharmacologic ordered
== END 2019-05-26 10:50 | disposition home or self-care (01) | DRG 300 ==
LOC: ANHED 19:46 → ANH3MED 21:23
PROVIDERS: Internal Medicine Hematology & Oncology; Admitting Provider Family Medicine; Emergency Provider Emergency Medicine; PCP Internal Medicine; Visit Provider Family Medicine
DX: I82.441 Acute embolism and thrombosis of right tibial vein (principal); L03.115 Cellulitis of right lower limb; R79.1 Abnormal coagulation profile; T45.515A Adverse effect of anticoagulants, initial encounter; Z79.01 Long term (current) use of anticoagulants; I10 Essential (primary) hypertension; E78.5 Hyperlipidemia, unspecified; M19.90 Unspecified osteoarthritis, unspecified site; G47.30 Sleep apnea, unspecified; D64.9 Anemia, unspecified; E66.9 Obesity, unspecified; Z68.38 Body mass index [BMI] 38.0-38.9, adult; Z86.718 Personal history of other venous thrombosis and embolism
CPT/HCPCS: 36415; 80048; 82607; 82728; 83540; 83550; 83605; 83615; 85025; 85027; 85046; 85610; 85730; 87040; 93306; 93971; 96365; 96366; 96367; 99285; A9270; G0378; J0131; J0690; J1644; J1940

== ENCOUNTER 2019-05-30 15:28 | Inpatient (IN) | payer BC, MEDICARE, SELFPAY ==
--- NOTE | ~2019-05-30 | US_ITS ---
EXAMINATION: US soft tissue LE RT DATE: 05/31/2019 09:49 INDICATION: Right posterior calf lump. TECHNIQUE: Multiple grayscale and Doppler ultrasound images of the right posterior calf were obtained . COMPARISON: Ultrasound 05/21/2019 FINDINGS: The right posterior calf demonstrates hyperechoic fat and a weblike distribution of edema. There is no drainable abscess. IMPRESSION: 1. Right posterior calf cellulitis. No drainable abscess. Reviewed, dictated and finalized at location A.
--- NOTE | ~2019-05-30 | XR_ITS ---
XR tibia fibula RT 2V DATE: 06/03/2019 17:44 INDICATION: Right leg blood clots, cellulitis, abscess TECHNIQUE: AP and lateral views COMPARISON: None FINDINGS: Osteoarthritic changes are noted at the knee and ankle joints and tarsal joints. Plantar calcaneal enthesopathy. No fracture, dislocation, periosteal reaction or bone destruction of the tibia or fibula. IMPRESSION: Osteoarthritic changes at the knee and ankle joints and tarsal joints Plantar calcaneal enthesopathy Reviewed, dictated and finalized at location A. IMPRESSION: Osteoarthritic changes at the knee and ankle joints and tarsal join ts Plantar calcaneal enthesopathy
[2019-05-30 15:32] VITALS: BP 142/95; PULSE 69; RESP 15; TEMP 36.6; O2SAT 100
[2019-05-30 16:43] LABS: Glucose Point of Care 125 (65-105)
--- NOTE | 2019-05-30 16:43 | ED.EXTPRO ---
HPI - Extremity Problem General Chief complaint: Extremity Problem,Nontraumatic Stated complaint: R LEG REDNESS/SWELLING Time Seen by Provider: 05/30/19 16:07 Source: patient and RN notes reviewed Mode of arrival: ambulatory Limitations: no limitations History of Present Illness HPI Narrative: A 64 y/o male presents to the ED with constant pain and erythema to his lower rt leg. He states that he was admitted to the hospitalist last week for 4-5 days for cellulites and a DVT in his rt lower leg. He reports that he was d/c on Wednesday on Cephalexin and Eliquis but denies his symptoms improving. He notes that he has been having constant pain, erythema, and warmth, so he decided to return to the ED. He also notes that palpation aggravates the pain. He denies any fevers, chills, N/V/D, or ABD pain. MD Complaint: extremity pain (lower rt leg) Onset (ago): week(s) Pain Consistency: constant Location: right and lower extremity Quality: constant Relieving factors: nothing Exacerbating factors: palpation Associated symptoms: other (warmth to lower rt leg) Context: history of DVT and recent illness (cellulites) Related Data Home Medications Medication Instructions Recorded Confirmed lisinopril 05/30/19 05/30/19 Allergies Allergy/AdvReac Type Severity Reaction Status Date / Time oxytetracycline Allergy Mild Hives Verified 05/30/19 15:39 tetracycline Allergy Unknown HIVES Verified 05/30/19 15:39 Review of Systems Review of Systems: Narrative: CONSTITUTIONAL: Denies fever or chills. GASTROINTESTINAL: Denies abdominal pain, nausea, vomiting, or diarrhea. MUSCULOSKELETAL: Reports lower rt leg pain, warmth, and erythema. Neuro: Denies numbness All systems reviewed & are unremarkable except as noted in HPI and below PMFSH Past Medical History Medical History Arthritis Deep vein thrombosis Degenerative disc disease Hypertension Sleep apnea Surgical History Surgical History History of arthroscopy of right knee History of tonsillectomy Social History Social History Smoking status: Never smoker Second hand tobacco smoke exposure: No Smoking end date: 03/22/10 Alcohol intake: never Substance use: never Gender identity (if verbalized by the patient): Female Spiritual care concerns: No Agree to blood products: Yes Exam Narrative: Exam Narrative: GENERAL: Well-appearing, well-nourished, and in no acute distress. HEAD: Normocephalic, atraumatic. EYES: PERRLA and EOMI. ENT: Nares clear, no rhinorrhea or epistaxis. Mucous membranes moist. NECK: Supple. CHEST: Clear to auscultation. No respiratory distress. HEART: Regular rate and rhythm. No murmur heard. Normal peripheral pulses. ABDOMEN: Soft, nontender, nondistended, normal active bowel sounds. EXTREMITIES: Normal range of motion. No edema. SKIN: Dry, circumferential erythema, warmth, and induration to RLE greater than 10 cm, compartment of calf is soft, and DP pulses 2+. Small blisters present. No vesicles. No open, weeping wounds. No ulcerations. Compartment is soft. NEURO: No focal deficits. Alert and oriented X3. Course Course Emergency Course: Patient with right lower extremity cellulitis that clinically appears to likely be worsening. He has pain with palpation. He has been anticoagulated, and has adequate DP pulses, extremities warm and well perfused. To me clinically, it appears the cellulitis is worsening. His leukocytosis is actually improved compared to when he was discharged, but clinically this wound does not appear to be improving much. We will order ultrasound soft tissue extremity for the morning, patient was brought into vancomycin and admitted in stable condition. Vital Signs Vital signs: Vital Signs Temperature 36.6 C 05/30/19 15:32 Pulse Rate 69 05/30/19 15:32 Respiratory Rate 15 05/30/19 15:32 Blo
--- NOTE | 2019-05-30 16:50 | ECG_ITS ---
Measurements Intervals [place] Rate: 57 P: -36 CT: 166 QRS: 3 QRSD: 98 T: 48 QT: 432 QTc: 424 Interpretive Statements SINUS BRADYCARDIA INCOMPLETE RIGHT BUNDLE BRANCH BLOCK VOLTAGE CRITERIA FOR LVH BASELINE ARTIFACT- I, II, AVR, AVL, AVF BORDERLINE ECG Electronically Signed On 05-31-2019 11:39:00 CDT by Andreas Xavier D.O.
[2019-05-30 16:54] VITALS: BP 122/54; PULSE 57; RESP 20; O2SAT 100
[2019-05-30 16:55] LABS: Basophils Percent Auto 0.4 % (0.2-1.2); Eosinophils Absolute Auto 0.1 K/mm3 (0-0.3); Eosinophils Percent Auto 0.5 % (0-4.4); Hematocrit 38.3 % (42.0-52.0); Hemoglobin 11.8 g/dL (14.0-18.0); Immature Granulocyte Absolute 0.09 K/mm3 (0.00-0.031); Immature Granulocyte Percent A 0.8 % (0-0.5); Lymphocytes Absolute Auto 1.59 K/mm3 (0.9-3.2); Mean Corpuscular HGB Conc 30.8 g/dl (32-36); Mean Corpuscular Hemoglobin 28.1 pg (26-34); Mean Corpuscular Volume 91.2 fl (80-100); Mean Platelet Volume 11.5 fl (7.4-10.4); Monocytes Absolute Auto 0.9 K/mm3 (0.1-0.6); Monocytes Percent Auto 8.1 % (2.6-8.5); Neutrophils Absolute Auto 8.7 K/mm3 (1.3-6.7); Neutrophils Percent Auto 76.2 % (45.5-73.1); Platelet Count Result 628 k/mm3 (150-375); Red Cell Distribution Width 14.9 % (11.5-14.5); White Blood Count 11.4 K/mm3 (4.5-10.0)
[2019-05-30 17:21] LABS: Erythrocyte Sedimentation Rate 25 mm/hr (0-20)
[2019-05-30] MEDS: SODIUM CHLORIDE 0.9% IV 1,000 ML 999 ML IV CONT (17:33)
--- NOTE | 2019-05-30 17:43 | PC.NURSE ---
Unable to obtain blood draw, called lab and at bedside for attempt. Vancomycin at bedside following blood culture draw.
[2019-05-30 18:35] VITALS: BP 122/54; PULSE 77; RESP 17; O2SAT 97
[2019-05-30 18:46] LABS: INR 1.3; Prothrombin Time 15.4 Seconds (11.1-14.7)
[2019-05-30 18:47] LABS: Partial Thromboplastin Time 30.8 SECONDS (22.3-36.8)
[2019-05-30 18:50] LABS: Alanine Aminotransferase 64 U/L (4-50); Albumin Level 3.4 g/dL (3.5-5.1); Alkaline Phosphatase 57 U/L (38-126); Aspartate Amino Transferase 39 U/L (17-59); Bilirubin,Total 0.4 mg/dL (0.2-1.3); Blood Urea Nitrogen 18 mg/dL (9-20); Calcium 8.4 mg/dL (8.4-10.2); Carbon Dioxide 25 mmol/L (22-30); Chloride 104 mmol/L (98-107); Estimated CRCL calculation 106 ml/min; Estimated Glomerular Filt Rate > 60; Glucose 111 mg/dL (75-110); Potassium 4.9 mmol/L (3.4-5.0); Sodium 138 mmol/L (137-145)
[2019-05-30 18:55] LABS: CRP 7.3 mg/dL (<1.0)
[2019-05-30 18:58] LABS: NT Pro B Type Natriuretic Pept 184 PG/ML (5-100)
[2019-05-30 20:49] VITALS: BP 128/59; PULSE 75; RESP 19; TEMP 36.6; O2SAT 99
[2019-05-30 20:57] VITALS: BP 140/81; PULSE 64; RESP 16; TEMP 36.6; O2SAT 98
[2019-05-30 20:59] VITALS: BMI 37.5
--- NOTE | 2019-05-30 21:39 | ADMGEN ---
This patient, Mark Coffman, was admitted to Medical Room 348-01. Patient/family oriented to hospital policies and general routines including ID bracelet, bed and alarms, visiting hours, pain management, procedures, bathroom and other care routines, personal items, smoking policy, room service/diet, and visiting hours. Valuables list has been completed. Information on how to activate the Rapid Response Team has been discussed. Patient/Family are encouraged to report perceived risks to care and to ask questions if they do not understand what they are told or what they should do.
[2019-05-30] MEDS: SIMVASTATIN 20 MG TABLET 40 MG PO (23:03)
[2019-05-30] MEDS: lisinopriL 20 MG TABLET PO (23:03)
[2019-05-30] MEDS: APIXABAN 5 MG TABLET PO (23:04)
[2019-05-31 06:00] VITALS: BP 139/71; PULSE 58; RESP 16; TEMP 36.5; O2SAT 98
[2019-05-31] MEDS: APIXABAN 5 MG TABLET PO ×2 (08:40→21:05)
--- NOTE | 2019-05-31 11:59 | PM.IMHP ---
H&P: HPI History of Present Illness Chief complaint: R leg pain, redness, swelling Narrative: Date of Service 05/31/19 1045 The supervising physician for this history and physical is Dr Virgilio Lyn. Mr. Coffman is a 64yo M with history of hypertension and hyperlipidemia, recently diagnosed right leg DVT, who presented to the emergency department for evaluation worsening right lower extremity redness, swelling, and pain. He is known to our hospitalist service having recently been admitted 05/22/19 - 05/26/19 at which time he was treated for lower extremity cellulitis with IV Rocephin and discharged with oral Keflex to complete the course. He was also diagnosed with right lower extremity deep venous thrombosis 05/22/19. He has history of multiple DVTs in the past and was on long-term anticoagulation with Xarelto. He was evaluated by hematology last week and will follow-up with Dr. Blank as an outpatient. His Xarelto was changed to Eliquis which he has been tolerating well. He notes that after being discharged, his right lower leg swelling, redness, and pain began to worsen to the point where he re-presented to the ED last evening. He notes his pain is decently controlled at rest, but worsens when he stands or walks on the right leg. Routine labs showed normocytic anemia and leukocytosis, actually improved compared to day of previous discharge. He was started on IV vancomycin. He is admitted for further management of persistent right lower extremity cellulitis and I suspect he will require at least a 2 midnight stay for same. Review of Systems Review of Systems: Narrative: He denies chest pain, shortness of breath, dizziness, or headaches. He denies any fevers at home since his last discharge. Denies any nausea or vomiting and has been tolerating oral intake. His last bowel movement was yesterday and he denies any diarrhea, constipation, hematochezia, or melena. Twelve systems were reviewed with pertinent positives and negatives as per HPI. Except as documented, all other systems were reviewed and are negative. [facility] Past Medical History Medical History (Updated 05/31/19 @ 17:42 by Bette Antunez PA-C) Chronic anticoagulation Previously with Xarelto due to multiple DVTs in the past. With his new DVT 05/22/19, he was switched to Eliquis. Deep vein thrombosis Other DVTs in the past. New right lower extremity DVT 05/22/19. Denies history of PE. Degenerative disc disease Hyperlipidemia Hypertension Surgical History Surgical History History of arthroscopy of right knee Around 2007 History of tonsillectomy As a child Family History Family History Mother Hypertension Social History Social History Social History: Mr. 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 He reports occasional alcohol use on special occasions, usually less than 1 drink per week. Never smoker, denies substance use. His PCP is Dr Sandhu. He designates his , Cordelia, as his surrogate decision maker and wishes to be full code status. Smoking status: Never smoker Second hand tobacco smoke exposure: No Alcohol intake: current Drinks per week: 1 Substance use: never Living arrangements: with family Occupation/Education: retired Gender identity (if verbalized by the patient): Male Spiritual care concerns: No Agree to blood products: Yes Meds Home Medications and Allergies Home Medications Medication Instructions Recorded Confirmed Type apixaban [Eliquis] 5 mg PO Q12HR #60 tablet 05/26/19 05/30/19 Rx cephalexin 500 mg PO Q8H #21 cap 05/26/19 05/30/19 Rx lisinopril 20 mg PO QPM 05/30/19 05/30/19 History simvastatin 40 mg PO QPM 05/30/19 05/30/19 History clotrimazole-betamethasone 1 1 applic TOPICAL BI
[2019-05-31 15:26] VITALS: BP 140/70; PULSE 53; RESP 20; TEMP 37; O2SAT 100
[2019-05-31] MEDS: SIMVASTATIN 20 MG TABLET 40 MG PO (17:16)
[2019-05-31] MEDS: lisinopriL 20 MG TABLET PO (17:16)
[2019-05-31 21:03] VITALS: BP 148/75; PULSE 60; RESP 15; TEMP 36.8; O2SAT 98
[2019-06-01 06:00] VITALS: BP 128/70; PULSE 58; RESP 16; TEMP 36.4; O2SAT 98
[2019-06-01 06:21] LABS: Basophils Percent Auto 0.4 % (0.2-1.2); Eosinophils Absolute Auto 0.1 K/mm3 (0-0.3); Eosinophils Percent Auto 1.2 % (0-4.4); Hematocrit 32.1 % (42.0-52.0); Hemoglobin 9.8 g/dL (14.0-18.0); Immature Granulocyte Absolute 0.06 K/mm3 (0.00-0.031); Immature Granulocyte Percent A 0.7 % (0-0.5); Lymphocytes Absolute Auto 1.49 K/mm3 (0.9-3.2); Lymphocytes Percent Auto 17.4 % (18.3-44.2); Mean Corpuscular HGB Conc 30.5 g/dl (32-36); Mean Corpuscular Hemoglobin 27.5 pg (26-34); Mean Corpuscular Volume 90.2 fl (80-100); Mean Platelet Volume 9.7 fl (7.4-10.4); Monocytes Absolute Auto 0.7 K/mm3 (0.1-0.6); Monocytes Percent Auto 8.5 % (2.6-8.5); Neutrophils Absolute Auto 6.1 K/mm3 (1.3-6.7); Neutrophils Percent Auto 71.8 % (45.5-73.1); Platelet Count Result 573 k/mm3 (150-375); Red Blood Count 3.56 M/mm3 (4.6-6.20); Red Cell Distribution Width 14.2 % (11.5-14.5); White Blood Count 8.5 K/mm3 (4.5-10.0)
[2019-06-01 06:59] LABS: Blood Urea Nitrogen 12 mg/dL (9-20); Calcium 8.6 mg/dL (8.4-10.2); Carbon Dioxide 27 mmol/L (22-30); Chloride 104 mmol/L (98-107); Estimated CRCL calculation 141 ml/min; Estimated Glomerular Filt Rate > 60; Glucose 117 mg/dL (75-110); Magnesium 2.1 mg/dL (1.6-2.3); Phosphorus 3.8 mg/dL (2.5-4.5); Potassium 4.4 mmol/L (3.4-5.0); Sodium 135 mmol/L (137-145)
[2019-06-01] MEDS: APIXABAN 5 MG TABLET PO ×2 (09:29→21:07)
--- NOTE | 2019-06-01 11:00 | PM.IMPN ---
Progress Note: A&P Assessment and Plan (1) Cellulitis of leg, right: Code(s): L03.115 - Cellulitis of right lower limb Status: Acute Assessment and Plan: Continue IV vancomycin (day 2) and monitor. Slightly improved today. Recently discharged last week after being treated with IV Ancef. Patient reports worsening redness, swelling, and pain after his discharge. There is one soft area with spontaneous drainage of serosanguineous fluid. Soft tissue ultrasound to right lower extremity shows no drainable abscess, right posterior calf cellulitis. (2) Acute deep vein thrombosis (DVT) of right lower extremity: Qualifiers: Affected thrombotic vein of extremity: tibial Qualified Code(s): I82.441 - Acute embolism and thrombosis of right tibial vein Code(s): I82.401 - Acute embolism and thrombosis of unspecified deep veins of right lower extremity Status: Acute Assessment and Plan: Recently diagnosed 05/22/19. 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 Xarelto was switched to Eliquis during his last admission. He will follow-up with hematology as an outpatient in 2 to 3 months. (3) Hypertension: Qualifiers: Hypertension type: unspecified Qualified Code(s): I10 - Essential (primary) hypertension Code(s): I10 - Essential (primary) hypertension Status: Acute Assessment and Plan: Blood pressure stable on his home lisinopril. Monitor BP. (4) Chronic anticoagulation: Code(s): Z79.01 - [facility] (current) use of anticoagulants Status: Chronic Assessment and Plan: With Eliquis for treatment of recently diagnosed acute right lower extremity DVT. Subjective Date/time seen: 06/01/19 0900 Interval history: Mr. Coffman is a 64yo M admitted with R leg cellulitis, also being treated for recently diagnosed R leg DVT. He reports his R leg pain is a little improved today. He feels it is a bit less swollen and less painful when he walks on it. He denies any chest pain shortness of breath. He does feel a bit constipated today, last BM was 2 or 3 days ago. He is tolerating oral intake without nausea or vomiting. Review of Systems Review of Systems: Narrative: Twelve systems were reviewed with pertinent positives and negatives as per HPI. Exam Narrative: Exam Narrative: General: Well-developed, well-nourished male resting sitting up in bed in no acute distress. HEENT: Normocephalic, atraumatic, EOMI, oral mucosa moist. Neck: Supple. Chest: Lungs clear to auscultation all nunn. Respirations even and nonlabored. Tolerating room air. Heart: Heart rate and rhythm regular with S1-S2. Abdomen: Soft, nontender, nondistended, bowel sounds present. Skin: Warm, dry. Extremities: Right lower extremity circumferential erythema below the knee and above the ankle within the marked lines from yesterday. Skin wrinkling of right lower leg, skin is dry. Right pedal edema. Neurologic: Alert and oriented. No focal neurological deficit noted. Cranial nerves II-XII grossly intact. Speech is clear. Psychiatric: Mood affect are normal, pleasant. Objective Data Vital Signs Vital Signs: Vital Signs - 24 hr 05/31/19 15:26 05/31/19 21:03 06/01/19 06:00 Temperature 98.6 F 98.3 F 97.6 F Pulse Rate 53 L 60 58 L Respiratory Rate 20 15 16 Blood Pressure 140/70 148/75 H 128/70 Pulse Oximetry 100 98 98 Intake/Output Intake/Output: Intake & Output 05/29/19 05/30/19 05/31/19 06/01/19 23:59 23:59 23:59 23:59 Intake Total 1250 4190 900 Output Total 2400 950 Balance 1250 1790 -50 Meds/Results Medications: Active Medications Generic Name Dose Route Start Last Admin Trade Name Freq PRN Reason Stop Dose Admin Acetaminophen 650 mg 05/30/19 18:36 Tylenol Tablet PO Q4H PRN
[2019-06-01] MEDS: polyethylene glycoL 3350 17 GM POWD.PACK PO ×2 (13:26→17:23)
[2019-06-01 14:00] VITALS: BP 141/79; PULSE 61; RESP 16; TEMP 37.1; O2SAT 100
[2019-06-01] MEDS: BISACODYL 5 MG TABLET EC PO (14:41)
[2019-06-01] MEDS: lisinopriL 20 MG TABLET PO (17:23)
[2019-06-01] MEDS: SIMVASTATIN 20 MG TABLET 40 MG PO (17:23)
[2019-06-01] MEDS: BISACODYL 10 MG SUPPOSITORY RECTAL (17:23)
[2019-06-01 20:25] LABS: Vancomycin Trough 15.2 ug/mL (10.0-20.0)
[2019-06-01 22:00] VITALS: BP 125/69; PULSE 57; RESP 16; TEMP 36.6; O2SAT 98
[2019-06-02 05:22] LABS: Hemoglobin 10.4 g/dL (14.0-18.0); Mean Corpuscular HGB Conc 30.6 g/dl (32-36); Mean Corpuscular Hemoglobin 27.4 pg (26-34); Mean Corpuscular Volume 89.7 fl (80-100); Mean Platelet Volume 9.8 fl (7.4-10.4); Platelet Count Result 557 k/mm3 (150-375); Red Blood Count 3.79 M/mm3 (4.6-6.20); Red Cell Distribution Width 14.2 % (11.5-14.5); White Blood Count 8.3 K/mm3 (4.5-10.0)
[2019-06-02 06:00] VITALS: BP 121/53; PULSE 58; RESP 16; TEMP 36.4; O2SAT 99
[2019-06-02] MEDS: APIXABAN 5 MG TABLET PO ×2 (09:14→20:55)
[2019-06-02] MEDS: polyethylene glycoL 3350 17 GM POWD.PACK PO ×2 (09:14→17:37)
--- NOTE | 2019-06-02 11:51 | PM.IMPN ---
Progress Note: A&P Assessment and Plan (1) Cellulitis of leg, right: Code(s): L03.115 - Cellulitis of right lower limb Status: Acute Assessment and Plan: Continue IV vancomycin (day 3) and monitor. Improving. Recently discharged last week after being treated with IV Ancef. Patient reports worsening redness, swelling, and pain after his discharge. There is one soft area with spontaneous drainage of serosanguineous fluid, scant purulent drainage today - can try to culture this fluid today. Soft tissue ultrasound to right lower extremity shows no drainable abscess, right posterior calf cellulitis. Appreciate wound RN consult. (2) Acute deep vein thrombosis (DVT) of right lower extremity: Qualifiers: Affected thrombotic vein of extremity: tibial Qualified Code(s): I82.441 - Acute embolism and thrombosis of right tibial vein Code(s): I82.401 - Acute embolism and thrombosis of unspecified deep veins of right lower extremity Status: Acute Assessment and Plan: Recently diagnosed 05/22/19. 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 Xarelto was switched to Eliquis during his last admission. He will follow-up with hematology as an outpatient in 2 to 3 months. (3) Hypertension: Qualifiers: Hypertension type: unspecified Qualified Code(s): I10 - Essential (primary) hypertension Code(s): I10 - Essential (primary) hypertension Status: Acute Assessment and Plan: Blood pressure stable on his home lisinopril. Monitor BP. (4) Chronic anticoagulation: Code(s): Z79.01 - [facility] (current) use of anticoagulants Status: Chronic Assessment and Plan: With Eliquis for treatment of recently diagnosed acute right lower extremity DVT. Subjective Date/time seen: 06/02/19 11:30 Interval history: Mr. Coffman is a 64yo M admitted with R leg cellulitis, also being treated for recently diagnosed R leg DVT. He feels that his R leg pain is a bit improved today. A little more drainage from the raised area on the back of calf, now a bit purulent today. Had a BM last night. He denies any chest pain, shortness of breath, or dizziness. He is tolerating oral intake without nausea or vomiting. Review of Systems Review of Systems: Narrative: Twelve systems were reviewed with pertinent positives and negatives as per HPI. Exam Narrative: Exam Narrative: General: Well-developed, well-nourished male resting sitting up in bed in no acute distress. HEENT: Normocephalic, atraumatic, EOMI, oral mucosa moist. Neck: Supple. Chest: Lungs clear to auscultation all nunn. Respirations even and nonlabored. Tolerating room air. Heart: Heart rate and rhythm regular with S1-S2. Abdomen: Soft, nontender, nondistended, bowel sounds present. Skin: Warm, dry. Extremities: Right lower extremity circumferential erythema below the knee and above the ankle within the demarcated lines, improving. Skin wrinkling of right lower leg, skin is dry and flaky. Right pedal edema. Raised area on posterior calf that is spontaneously draining some yellow serous drainage and now with scant amount of purulent drainage. Neurologic: Alert and oriented. No focal neurological deficit noted. Cranial nerves II-XII grossly intact. Speech is clear. Objective Data Vital Signs Vital Signs: Last Vital Signs Temp 97.6 F 06/02/19 06:00 Pulse 58 L 06/02/19 06:00 Resp 16 06/02/19 06:00 BP 121/53 L 06/02/19 06:00 Pulse Ox 99 06/02/19 06:00 Intake/Output Intake/Output: Intake & Output 05/30/19 05/31/19 06/01/19 06/02/19 23:59 23:59 23:59 23:59 Intake Total 1250 4190 3560 2210 Output Total 2400 2550 1325 Balance 1250 1790 1010 885 Meds/Results Medications: Active Medications Generic Name Dose Route Start Last
[2019-06-02 14:00] VITALS: BP 168/89; PULSE 58; RESP 14; TEMP 36.5; O2SAT 99
[2019-06-02] MEDS: lisinopriL 20 MG TABLET PO (17:37)
[2019-06-02] MEDS: SILVERGEL (ELTA) 45 ML 1 APPLIC TOPICAL (17:37)
[2019-06-02] MEDS: SIMVASTATIN 20 MG TABLET 40 MG PO (17:37)
[2019-06-02 20:54] VITALS: BP 116/70; PULSE 65; RESP 16; TEMP 36.9; O2SAT 98
[2019-06-03 05:20] VITALS: BP 106/62; PULSE 57; RESP 14; TEMP 36.3; O2SAT 98
[2019-06-03 05:59] LABS: Hematocrit 33.7 % (42.0-52.0); Hemoglobin 10.1 g/dL (14.0-18.0); Mean Corpuscular Hemoglobin 27.4 pg (26-34); Mean Corpuscular Volume 91.3 fl (80-100); Mean Platelet Volume 9.8 fl (7.4-10.4); Platelet Count Result 572 k/mm3 (150-375); Red Blood Count 3.69 M/mm3 (4.6-6.20); White Blood Count 8.3 K/mm3 (4.5-10.0)
[2019-06-03 06:12] LABS: Blood Urea Nitrogen 14 mg/dL (9-20); Calcium 8.7 mg/dL (8.4-10.2); Carbon Dioxide 29 mmol/L (22-30); Chloride 101 mmol/L (98-107); Estimated CRCL calculation 122 ml/min; Estimated Glomerular Filt Rate > 60; Glucose 114 mg/dL (75-110); Magnesium 2.2 mg/dL (1.6-2.3); Potassium 4.4 mmol/L (3.4-5.0); Sodium 136 mmol/L (137-145)
[2019-06-03] MEDS: APIXABAN 5 MG TABLET PO ×2 (08:32→21:30)
[2019-06-03] MEDS: SILVERGEL (ELTA) 45 ML 1 APPLIC TOPICAL (08:33)
[2019-06-03] MEDS: polyethylene glycoL 3350 17 GM POWD.PACK PO (08:33)
--- NOTE | 2019-06-03 13:15 | PM.IMPN ---
Progress Note: A&P Assessment and Plan (1) Cellulitis of leg, right: Code(s): L03.115 - Cellulitis of right lower limb Status: Acute Assessment and Plan: Continue IV vancomycin (day 4) and monitor. Improving. Recently discharged last week after being treated with IV Ancef. Patient reports worsening redness, swelling, and pain after his discharge. Soft tissue ultrasound to right lower extremity showed no drainable abscess, right posterior calf cellulitis. Wound RN consult later noted an abscess to that area of concern and was able to express a lot of drainage. Continue wound care Wound and blood cultures pending with no growth to date. Lost IV access. Multiple attempts made. Midline placed in order to continue IV antibiotic therapy. (2) Acute deep vein thrombosis (DVT) of right lower extremity: Qualifiers: Affected thrombotic vein of extremity: tibial Qualified Code(s): I82.441 - Acute embolism and thrombosis of right tibial vein Code(s): I82.401 - Acute embolism and thrombosis of unspecified deep veins of right lower extremity Status: Acute Assessment and Plan: Recently diagnosed 05/22/19. 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 Xarelto was switched to Eliquis during his last admission. He will follow-up with hematology as an outpatient in 2 to 3 months. (3) Hypertension: Qualifiers: Hypertension type: unspecified Qualified Code(s): I10 - Essential (primary) hypertension Code(s): I10 - Essential (primary) hypertension Status: Acute Assessment and Plan: Blood pressure stable on his home lisinopril. Monitor BP. (4) Chronic anticoagulation: Code(s): Z79.01 - [facility] (current) use of anticoagulants Status: Chronic Assessment and Plan: With Eliquis for treatment of recently diagnosed acute right lower extremity DVT. Subjective Date/time seen: 06/03/19 0915 Interval history: Mr. Coffman is a 64yo M admitted with R leg cellulitis, also being treated for recently diagnosed R leg DVT. R leg is a little less painful with walking today. Slowly improving. No BM today, patient requests suppository. He denies any chest pain, shortness of breath, or dizziness. He is tolerating oral intake without nausea or vomiting. Exam Narrative: Exam Narrative: General: Well-developed, well-nourished male resting sitting up in bed in no acute distress. HEENT: Normocephalic, atraumatic, EOMI, oral mucosa moist. Neck: Supple. Chest: Lungs clear to auscultation all nunn. Respirations even and nonlabored. Tolerating room air. Heart: Heart rate and rhythm regular with S1-S2. Abdomen: Soft, nontender, nondistended, bowel sounds present. Skin: Warm, dry. Extremities: Right lower extremity circumferential erythema below the knee and above the ankle within the demarcated lines, improving. Skin wrinkling of right lower leg, skin is dry and flaky. Right pedal edema. Raised area on posterior calf that with some purulent drainage. Neurologic: Alert and oriented. No focal neurological deficit noted. Cranial nerves II-XII grossly intact. Speech is clear. Objective Data Vital Signs Vital Signs: Vital Signs - 24 hr 06/02/19 14:00 06/02/19 20:54 06/03/19 05:20 Temperature 97.7 F 98.5 F 97.4 F L Pulse Rate 58 L 65 57 L Respiratory Rate 14 16 14 Blood Pressure 168/89 H 116/70 106/62 Pulse Oximetry 99 98 98 Intake/Output Intake/Output: Intake & Output 05/31/19 06/01/19 06/02/19 06/03/19 23:59 23:59 23:59 23:59 Intake Total 4190 3560 3220 1905 Output Total 2400 2550 1850 1050 Balance 1790 1010 1370 855 Meds/Results Medications: Active Medications Generic Name Dose Route Start Last Admin Trade Name Freq PRN Reason Stop Dose Admin Acetaminoph
[2019-06-03 14:00] VITALS: BP 123/67; PULSE 59; RESP 14; TEMP 36.8; O2SAT 99
[2019-06-03] MEDS: BISACODYL 5 MG TABLET EC PO (15:33)
[2019-06-03] MEDS: BISACODYL 10 MG SUPPOSITORY RECTAL (16:40)
[2019-06-03] MEDS: SIMVASTATIN 20 MG TABLET 40 MG PO (17:44)
[2019-06-03] MEDS: lisinopriL 20 MG TABLET PO (17:44)
[2019-06-03 20:44] LABS: Vancomycin Trough 19.4 ug/mL (10.0-20.0)
[2019-06-03 22:00] VITALS: BP 113/66; PULSE 57; RESP 14; TEMP 36.2; O2SAT 95
[2019-06-04 05:49] VITALS: BP 111/51; PULSE 55; RESP 16; TEMP 36.8; O2SAT 98
[2019-06-04] MEDS: APIXABAN 5 MG TABLET PO ×2 (09:35→21:18)
[2019-06-04] MEDS: SILVERGEL (ELTA) 45 ML 1 APPLIC TOPICAL (09:36)
[2019-06-04 14:00] VITALS: BP 135/69; PULSE 65; RESP 14; TEMP 37.3; O2SAT 100
--- NOTE | 2019-06-04 14:58 | PM.IMPN ---
Progress Note: A&P Assessment and Plan (1) Cellulitis of leg, right: Code(s): L03.115 - Cellulitis of right lower limb Status: Acute Assessment and Plan: Continue IV vancomycin (day 5) and monitor. Improving. Recently discharged last week after being treated with IV Ancef and discharged with Keflex. Patient reports worsening redness, swelling, and pain after his discharge. Soft tissue ultrasound to right lower extremity showed no drainable abscess, right posterior calf cellulitis. Wound RN consult later noted an abscess to that area of concern and was able to express a lot of drainage. Continue wound care. Wound and blood cultures pending with no growth to date. Midline placed in order to continue IV antibiotic therapy due to lost IV access. (2) Acute deep vein thrombosis (DVT) of right lower extremity: Qualifiers: Affected thrombotic vein of extremity: tibial Qualified Code(s): I82.441 - Acute embolism and thrombosis of right tibial vein Code(s): I82.401 - Acute embolism and thrombosis of unspecified deep veins of right lower extremity Status: Acute Assessment and Plan: Recently diagnosed 05/22/19. 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 Xarelto was switched to Eliquis during his last admission. He will follow-up with hematology as an outpatient in 2 to 3 months. (3) Hypertension: Qualifiers: Hypertension type: unspecified Qualified Code(s): I10 - Essential (primary) hypertension Code(s): I10 - Essential (primary) hypertension Status: Acute Assessment and Plan: Blood pressure stable on his home lisinopril. Monitor BP. (4) Chronic anticoagulation: Code(s): Z79.01 - [facility] (current) use of anticoagulants Status: Chronic Assessment and Plan: With Eliquis for treatment of recently diagnosed acute right lower extremity DVT. Subjective Date/time seen: 06/04/19 1200 Interval history: Mr. Coffman is a 64yo M admitted with R leg cellulitis, also being treated for recently diagnosed R leg DVT. R leg is improving. He denies any chest pain, shortness of breath. He has tolerated breakfast without nausea or vomiting. Review of Systems Review of Systems: Narrative: Twelve systems were reviewed with pertinent positives and negatives as per HPI. Exam Narrative: Exam Narrative: General: Well-developed, well-nourished male resting sitting up in bed in no acute distress. HEENT: Normocephalic, atraumatic, EOMI, oral mucosa moist. Neck: Supple. Chest: Lungs clear to auscultation all nunn. Respirations even and nonlabored. Tolerating room air. Heart: Heart rate and rhythm regular with S1-S2. Abdomen: Soft, nontender, nondistended, bowel sounds present. Skin: Warm, dry. Extremities: Right lower extremity circumferential erythema below the knee and above the ankle within the demarcated lines, improving. Skin wrinkling of right lower leg, skin is dry and flaky. Right pedal edema improved. Raised area on posterior calf that with some purulent drainage. Neurologic: Alert and oriented. No focal neurological deficit noted. Cranial nerves II-XII grossly intact. Speech is clear. Objective Data Vital Signs Vital Signs: Vital Signs - 24 hr 06/03/19 22:00 06/04/19 05:49 Temperature 97.2 F L 98.2 F Pulse Rate 57 L 55 L Respiratory Rate 14 16 Blood Pressure 113/66 111/51 L Pulse Oximetry 95 98 Intake/Output Intake/Output: Intake & Output 06/01/19 06/02/19 06/03/19 06/04/19 23:59 23:59 23:59 23:59 Intake Total 3560 3220 2125 1195 Output Total 2550 1850 1650 750 Balance 1010 1370 475 445 Meds/Results Medications: Active Medications Generic Name Dose Route Start Last Admin Trade Name Freq PRN Reason Stop Dose Admin Acetaminophen 650 mg 05/30/19 18:
[2019-06-04] MEDS: ACETAMINOPHEN 325 MG TABLET 650 MG PO (16:52)
[2019-06-04] MEDS: lisinopriL 20 MG TABLET PO (19:47)
[2019-06-04] MEDS: SIMVASTATIN 20 MG TABLET 40 MG PO (19:47)
[2019-06-04 19:53] VITALS: BP 144/73; PULSE 64; RESP 16; TEMP 36.6; O2SAT 99
[2019-06-05 05:52] VITALS: BP 115/60; PULSE 53; RESP 16; TEMP 36.3; O2SAT 100
[2019-06-05 05:54] LABS: Estimated CRCL calculation 108 ml/min; Estimated Glomerular Filt Rate > 60
[2019-06-05] MEDS: SILVERGEL (ELTA) 45 ML 1 APPLIC TOPICAL (08:55)
[2019-06-05] MEDS: APIXABAN 5 MG TABLET PO (08:55)
--- NOTE | 2019-06-10 15:02 | PM.DS ---
DS: Diagnosis Admitting Diagnosis Admitting Diagnosis: Cellulitis of right lower limb Discharge Diagnosis (1) Cellulitis of leg, right: Code(s): L03.115 - Cellulitis of right lower limb Status: Acute Assessment and Plan: Date of Service 06/05/19 Mr. Coffman is a 64yo M with hypertension who presented to the ER for evaluation of right lower extremity redness, swelling, and pain. He was recently admitted just 2 weeks prior to this admission from 05/22/19 to 05/26/19 for treatment of right lower leg cellulitis and acute R leg DVT. Mr. Coffman was previously anticoaguated with Xarelto for history of DVTs in the past, and during his previous admission he was diagnosed with a new DVT in the right leg and switched to Eliquis. He was seen by hematology at that time and is again encouraged to follow up with Dr Blank after discharge. During that admission he was treated with IV ancef and discharged with oral Kelfex for right lower leg cellulitis. He again presented to the ED due to worsening right leg cellulitis after discharge. He was treated with IV vancomycin and seen by the wound RN, who treated a spontaneously draining abscess to posterior right calf. XR right tibia/fibula showed right knee and ankle osteoarthritis with no evidence of osteomyelitis. His cellulitis was clinically much improved with IV vancomycin and he was discharged with oral Bactrim based on a wound culture obtained during the stay, which grew Proteus mirabilis and E coli. Blood cultures were negative. He was hemodynamically stable for discharge 06/05/19 and instructed to follow up with PCP and hematology. IV vancomycin (day 5) , redness, swelling, pain much improved. Recently discharged last week after being treated with IV Ancef and discharged with Keflex. Symptoms worsened after discharge. Soft tissue ultrasound to right lower extremity on arrival showed no drainable abscess, right posterior calf cellulitis. Wound RN consult later noted an abscess to that area of concern and was able to express a lot of drainage. Continue wound care. Wound culture grew Proteus and E coli. Blood cultures negative. Midline placed in order to continue IV antibiotic therapy due to lost IV access, removed at discharge. (2) Acute deep vein thrombosis (DVT) of right lower extremity: Qualifiers: Affected thrombotic vein of extremity: tibial Qualified Code(s): I82.441 - Acute embolism and thrombosis of right tibial vein Code(s): I82.401 - Acute embolism and thrombosis of unspecified deep veins of right lower extremity Status: Acute Assessment and Plan: Recently diagnosed 05/22/19. 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 Xarelto was switched to Eliquis during his last admission and seen by hematology at that time. He will follow-up with hematology as an outpatient in 2 to 3 months. (3) Hypertension: Qualifiers: Hypertension type: unspecified Qualified Code(s): I10 - Essential (primary) hypertension Code(s): I10 - Essential (primary) hypertension Status: Acute Assessment and Plan: Blood pressure stable on his home lisinopril. 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 DS: Summary Time Spent with Patient Time attestation: Total time spent providing and/or coordinating discharge services: 40 minutes Exam Narrative: Exam Narrative: General: Well-developed, well-nourished male resting sitting up in bed in no acute distress. HEENT: Normocephalic, atraumatic, EOMI, oral mucosa moist. Neck: Supple. Chest: Lungs clear to auscultation all nunn. Resp
--- NOTE | 2019-06-23 10:42 | PCWOUND ---
WOCN NOTE 06/02/2019 Lenth: 0.3cm Width: 0.3cm Depth: 2.0cm underminining entire circumference of wound, with deepest at 3 o'clock of 4.0cm and 12 o'clock of 1.0cm Abscess present to the posterior right lower leg. Moderate amount of serousanginous/purulent exudate expressed. Undermining is present to the entire circumference of the wound, with 3 o'clock being the deepest area at 4.0cm. Surrounding tissue with 3+ pitting edema to the lower leg, no erythema or warmth present. Received orders to apply Silver gel for topical antimicrobial coverage and to cover with a Mepilex border to cushion, protect and promote moist wound healing. Patient was educated on the importance of elevation of legs, wearing compression to reduce edema, avoiding salt in the diet and to increase excerise within ability of patient. Patient verbalized understanding.
--- NOTE | 2019-06-23 10:46 | PCWOUND ---
WOCN NOTE from 06/02/2019 right posterior lower leg ulcer, unknown etiology Length: 0.3cm Width: 0.3cm Depth: 2.0 Undermining of the entire circumference with deepest areas at 3 o'clock of 4.0cm and 12 o'clock of 1.0cm. Abscess present to the posterior right lower leg. Moderate amount of serousanginous/purulent exudate expressed. Undermining is present to the entire circumference of the wound, with 3 o'clock being the deepest area at 4.0cm. Surrounding tissue with 3+ pitting edema to the lower leg, no erythema or warmth present. Received orders to apply Silver gel for topical antimicrobial coverage and to cover with a Mepilex border to cushion, protect and promote moist wound healing.
== END 2019-06-05 14:50 | disposition home or self-care (01) | DRG 603 ==
LOC: ANHED 18:52 → ANH3MED 19:26
PROVIDERS: Physician Assistant; Admitting Provider Family Medicine; Emergency Provider Emergency Medicine; PCP Internal Medicine; Visit Provider Internal Medicine
DX: L03.115 Cellulitis of right lower limb (principal); I82.441 Acute embolism and thrombosis of right tibial vein; I10 Essential (primary) hypertension; G47.30 Sleep apnea, unspecified; M19.90 Unspecified osteoarthritis, unspecified site; Z79.01 Long term (current) use of anticoagulants
CPT/HCPCS: 36415; 36569; 73590; 76882; 80048; 80053; 80202; 82565; 82948; 83735; 83880; 84100; 85025; 85027; 85610; 85652; 85730; 86140; 87040; 87070; 87077; 87186; 87205; 87804; 93005; 96361; 96365; 96366; 99285; A9270; C1751; G0378; J3370; J7030

== ENCOUNTER 2019-06-23 09:49 | Outpatient (RCR) | payer BC, SELFPAY ==
[2019-06-23 10:30] VITALS: BMI 36.6
--- NOTE | 2019-06-23 10:48 | PCWOUND ---
WOCN NOTE from 06/02/2019 Patient was seen in the hospital for abscess to the right posterior lower leg Length: 0.3cm Width 0.3cm Depth: 2.0cm Undermining of the entire circumference with deepest areas of 3 o'clock of 4.0cm and 12 o'clock of 1.0cm Abscess present to the posterior right lower leg. Moderate amount of serousanginous/purulent exudate expressed. Undermining is present to the entire circumference of the wound, with 3 o'clock being the deepest area at 4.0cm. Surrounding tissue with 3+ pitting edema to the lower leg, no erythema or warmth present. Received orders to apply Silver gel for topical antimicrobial coverage and to cover with a Mepilex border to cushion, protect and promote moist wound healing. Patient does have venous insufficiency with evidence of varicose veins that area present to leg and foot. Patient was educated on the importance of elevating his legs, wearing compression stockings to reduce edema, avoiding salt and increasing his exercise regimen. Patient verbalized understanding.
== END 2019-08-21 08:13 | disposition home or self-care (01) ==
LOC: ANHWOC 09:49
PROVIDERS: PCP Internal Medicine; Visit Provider Plastic Surgery
DX: I87.8 Other specified disorders of veins (principal); Z86.718 Personal history of other venous thrombosis and embolism; Z79.01 Long term (current) use of anticoagulants
CPT/HCPCS: 99212; G0463

== ENCOUNTER → 2019-09-11 08:54 | Outpatient (CLI) | payer BC, SELFPAY ==
--- NOTE | ~2019-09-11 | US_ITS ---
EXAMINATION: US venous doppler LE RT DATE: 09/11/2019 09:19 INDICATION: Acute deep venous thrombosis with right lower limb swelling TECHNIQUE: Grayscale ultrasound images without and with compression and Doppler ultrasound images of the right lower extremity veins were obtained. COMPARISON: 05/21/2019 FINDINGS: The visualized portions of right common femoral vein, profunda (deep) femoral vein, femoral vein, pop liteal vein, peroneal trunk, posterior tibial veins, peroneal veins, gastrocnemius vein, soleus vein and greater saphenous vein outflow are patent. IMPRESSION: 1. No deep venous thrombosis in the right lower limb. Reviewed, dictated and finalized at location A.
== END ==
PROVIDERS: PCP Internal Medicine; Visit Provider Internal Medicine Hematology & Oncology
DX: I82.441 Acute embolism and thrombosis of right tibial vein (principal)
CPT/HCPCS: 93971

== ENCOUNTER 2021-03-07 10:38 | Emergency (ER) | payer BC, SELFPAY ==
--- NOTE | ~2021-03-07 | US_ITS ---
EXAMINATION: US venous doppler LE RT EXAM DATE: 03/07/2021 13:43 INDICATION: right posterior calf pain, hsx of dvt and abscess. TECHNIQUE: Multiple grayscale, color flow and Doppler images of the right lower extremity deep venous system were obtained and reviewed. Comparison is made to prior examination from 09/11/2019. FINDINGS: The right common femoral, femoral and profunda veins demonstrate normal color flow, respira tory variation, augmentation and compressibility. Compressibility, color flow confirmed within the r ight popliteal, posterior tibial, peroneal, and greater saphenous veins. IMPRESSION: 1. No right lower extremity deep venous thrombosis. Reviewed, dictated and finalized at location B. [facility]
[2021-03-07 10:58] VITALS: BP 188/102; PULSE 53; RESP 18; TEMP 36.6; O2SAT 97
[2021-03-07 12:27] VITALS: BP 193/93; PULSE 58; RESP 20; TEMP 36.6; O2SAT 100
--- NOTE | 2021-03-07 12:56 | ED.GENADULT ---
HPI - General Adult General Chief complaint: Extremity Problem,Nontraumatic Stated complaint: R LEG SWELLING, HX CELLULITIS AND DVT Time Seen by Provider: 03/07/21 12:42 History of Present Illness HPI narrative: 66-year-old male with history of lower extremity DVTs cellulitis and abscesses presents to the emergency department for evaluation of right calf pain that started last night. Patient states he was at rest when he began developing some right posterior calf pain. Patient's right lower extremity is edematous. Patient reports he always has bilateral lower extremity edema and the right leg is typically worse than the left. Patient states that his current edema on the right is worse than normal. Patient reports he has been taking his medications as directed. Patient denies any recent illnesses or fever. Patient denies any falls or injuries. Patient denies any associated chest pain or shortness of breath. Related Data Allergies Allergy/AdvReac Type Severity Reaction Status Date / Time oxytetracycline Allergy Mild Hives Verified 09/13/20 14:02 tetracycline Allergy Unknown HIVES Verified 09/13/20 14:02 Review of Systems Review of Systems: CONSTITUTIONAL: Denies fever, chills, or sweats. CARDIOVASCULAR: Denies chest pain, palpitations, or edema. RESPIRATORY: Denies cough or dyspnea. GASTROINTESTINAL: Denies abdominal pain, nausea, vomiting, or diarrhea. GENITOURINARY: Denies dysuria or hematuria. SKIN: Denies rash or itching. MUSCULOSKELETAL: Right posterior calf pain, lower extremity edema NEUROLOGIC: Denies headache, numbness, or weakness. [facility] Past Medical History Medical History (Updated 09/14/20 @ 16:29 by Ruddy Sandhu DO) Cellulitis of right lower leg Chronic anticoagulation Previously with Xarelto due to multiple DVTs in the past. With his new DVT 05/22/19, he was switched to Eliquis. Deep vein thrombosis Other DVTs in the past. New right lower extremity DVT 05/22/19. Denies history of PE. Degenerative disc disease Hyperlipidemia Hypertension Surgical History Surgical History History of arthroscopy of right knee Around 2007 History of tonsillectomy As a child Family History Family History Mother Hypertension Social History Social History Social History: Mr. 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 He reports occasional alcohol use on special occasions, usually less than 1 drink per week. Never smoker, denies substance use. His PCP is Dr Sandhu. He designates his , Cordelia, as his surrogate decision maker and wishes to be full code status. Smoking status: Never smoker Second hand tobacco smoke exposure: No Alcohol intake: current Drinks per week: 1 Substance use: never Gender identity (if verbalized by the patient): Male Spiritual care concerns: No Agree to blood products: Yes Exam Narrative: APPEARANCE: Well appearing, no pain in distress, well-nourished. Head normocephalic atraumtaic. EYES: PERRLA/EOMI, conjunctivae very clear. NECK: Supple. No adenopathy, no masses. RESPIRATORY: Airway patent, respirations nonlabored. Clear to auscultation bilaterally, no rales, rhonchi, wheezing. CARDIOVASCULAR: Regular rate and rhythm without murmurs rubs or gallops. ABDOMINAL: Soft, nontender, nondistended, no hepatosplenomegally MUSCULOSKELETAl: Moves all extremities. Strength/ROM intact. Edema on right greater than left. Some calf tenderness to palpation. No erythema fluctuance or evidence of abscess/cellulitis. NEURO: Alert. Cranial nerves II through XII intact. Good gait. Good coordination SKIN:: Warm, dry. Normal Color PSYCHIATRIC: Normal affect/mood, normal interaction with parents. Course Course Emergency Course: Patient was updated on plan for an
[2021-03-07 14:34] VITALS: BP 168/74; PULSE 62; RESP 14; TEMP 36.5; O2SAT 97
== END 2021-03-07 14:35 | disposition home or self-care (01) ==
PROVIDERS: Emergency Provider Emergency Medicine; PCP Internal Medicine
DX: M79.661 Pain in right lower leg (principal); E78.5 Hyperlipidemia, unspecified; I10 Essential (primary) hypertension; Z86.718 Personal history of other venous thrombosis and embolism; Z79.01 Long term (current) use of anticoagulants
CPT/HCPCS: 93971; 99284

== ENCOUNTER 2021-08-13 12:15 | Outpatient (CLI) | payer BC, SELFPAY ==
--- NOTE | 2021-08-13 12:26 | ECHO_ITS ---
Patient Info Name: Mark Coffman Age: 66 years : 1955 Gender: Male Ht: 72 in Wt: 266 lbs BSA: 2.52 m2 HR: 58 bpm BP: 140 / 82 mmHg Heart Rhythm: Sinus Arrhythmia Technical Quality: Fair Exam Date: 08/13/2021 12:36 PM Exam Location: [facility] Pulmonary Patient Status: Outpatient Admit Date: 08/13/2021 Staff Ordering Physician: Ruddy Sandhu DO Quality Engineer: Katie Addison RDCS Attending Provider: Ruddy Sandhu DO Referring Physician: Edson PERSAUD; Exam Type: CA echo doppler color flow Study Info Indications - Cardiac murmur Complete two-dimensional, color flow and Doppler transthoracic echocardiogram is performed. Summary 1. Complete two-dimensional, color flow and Doppler transthoracic echocardiogram is performed. 2. Left ventricular chamber dimension is normal. 3. Left ventricular systolic function is normal, estimated at 60-65%. 4. There is mildly increased left ventricular wall thickness. 5. The left ventricular diastolic function is grade I diastolic dysfunction. 6. E/e' 7 is not elevated. 7. Left atrial chamber dimension is mildly enlarged. 8. There is moderate aortic valve sclerosis. 9. There is mild aortic valve stenosis with a peak velocity of 312 cm/s, mean gradient of 15 mmHg, and aortic valve area of 1.7 cm2. 10. The mitral valve has mildly calcified annulus. 11. No pulmonary hypertension, estimated pulmonary arterial systolic pressure is 26 mmHg. Left Ventricle E/e' 7 is not elevated. Left ventricular chamber dimension is normal. Left ventricular systolic function is normal, estimated at 60-65%. There is mildly increased left ventricular wall thickness. The left ventricular diastolic function is grade I diastolic dysfunction. Right Ventricle Right ventricular systolic function is normal and with normal TAPSE 2.0 cm. Right ventricular chamber dimension is normal. Left Atria Left atrial chamber dimension is mildly enlarged. Right Atria Right atrial chamber dimension is normal. Aortic Valve The aortic valve is trileaflet. There is moderate aortic valve sclerosis. There is mild aortic valve stenosis with a peak velocity of 312 cm/s, mean gradient of 15 mmHg, and aortic valve area of 1.7 cm2. There is no aortic valve regurgitation. Pulmonic Valve There is no pulmonic regurgitation. Mitral Valve The mitral valve has mildly calcified annulus. There is no mitral valve stenosis. There is no mitral valve regurgitation. Tricuspid Valve There is no tricuspid valve regurgitation. No pulmonary hypertension, estimated pulmonary arterial systolic pressure is 26 mmHg. Pericardium/Pleural There is no pericardial effusion. Inferior Vena Cava Normal inferior vena cava with >50% collapse upon inspiration consistent with normal right atrial pressure, 5 mmHg. Aorta The aortic root size at the sinus of Valsalva is normal. Left Ventricular Outflow Tract Name Value Normal LVOT 2D LVOT Diameter 2.1 cm LVOT Doppler LVOT Peak Gradient 7 mmHg LVOT Mean Gradient 3 mmHg LVOT VTI
== END 2021-08-13 12:16 | disposition home or self-care (01) ==
PROVIDERS: PCP Internal Medicine; Visit Provider Internal Medicine
DX: R01.1 Cardiac murmur, unspecified (principal)
CPT/HCPCS: 93306

== ENCOUNTER 2024-04-12 07:51 | Outpatient (CLI) | payer MEDICARE, SELFPAY ==
--- OUTSIDE RECORDS SUMMARY | 2024-04-13 21:24 | XMS_ITS | Clinical Summary ---
Author Organization [facility] Elise Riddle Address [address] [place] [address] Care Team Providers Care Flexographic Press Plate Setter Name Role Phone Edu Domínguez MD Primary Care Provider [phone] Allergies Active Allergy Reactions Criticality Noted Date Comments Tetracycline Hives High 09/04/2019 Medications Eliquis 5 mg tablet TAKE 1 TABLET BY MOUTH EVERY 12 HOURS 06/21/2019 Active lisinopriL (PRINIVIL) 20 mg tablet 20 mg. 02/12/2014 Active simvastatin (ZOCOR) 40 mg tablet 40 mg. 02/12/2014 Active HYDROcodone-yesenia taminophen (NORCO) 5-325 mg tablet TAKE 1 TABLET BY MOUTH AT BEDTIME NEEDED 07/18/2019 Active Active Problems Problem Noted Date Diagnosed Date Acute deep vein thrombosis ( DVT) of proximal vein of right lower extremity 09/18/2019 Family History Relation Name Status Comments Brother Alive Father Alive Mother Social History Tobacco Use Types Packs/Day Years Used Date Smoking Tobacco: Never Smokeless Tobacco: Never Alcohol Use Standard Drinks/Week Comments Yes 0 (1 standard drink = 0.6 oz pur e alcohol) OCCASIONLLY Sex and Gender Information Value Date Recorded Sex Assigned at Not on file Legal Sex Male 11:48 PM CDT Gender Identity Not on file Sexual Orientation Not on file Last Filed Vital Signs Vital Sign Reading Time Taken Comments Blood Pressure 116/73 09/04/2019 3:01 PM CDT 1ST BP TAKE 45/41 HR 52 Pulse 49 09/04/2019 3:01 PM CDT Temperature 36.7 ??C (98 ??F) 09/18/2019 10: 00 AM CDT Respiratory Rate 22 09/18/2019 10:0 0 AM CDT Oxygen Saturation 98% 09/04/2019 3:0 1 PM CDT Inhaled Oxygen Concentration - - Weight 129.2 kg (284 lb 14.4 oz) 09/04/2019 3:01 PM CDT Height 182.9 cm (6') 09/04/2019 3:01 PM CDT Body Mass Index 38.64 09/04/2019 3:01 PM CDT Plan of Treatment Health Maintenance Due Date Last Done Comments DTAP/TDAP/TD VACCINES (1 - Tdap) 02/15/1972 COLORECTAL SCREENING 1998 Colorectal Cancer Screening 1998 FIT-DNA Q 3 years 1998 FIT/FOBT Q 1 year 1998 Flex Sig/CT Colonography Q 5 years 1998 PNEUMOCOCCAL VACCINE 65+ YEARS (1 of 1 - PCV) 02/15/20 03 ZOSTER VACCINE (1 of 2) 2003 INFLUENZA VACCINE (#1) 2023 RSV VACCINE (60+ or ) (1 - 1-dose 75+ series) 02/15/2028 Care Teams Flexographic Press Plate Setter Relationship Specialty Start Date End Date Edu Domínguez MD [address] [place] [address] PCP - General Neurology 06/21/19
--- OUTSIDE RECORDS SUMMARY | 2024-04-13 21:24 | XMS_ITS | Clinical Summary ---
Author Organization [facility] [address] [place] [address] [facility] [place] Address [address] [place] [id number] Care Team Providers Care Resource Specialist Name Role Phone Ruddy Sandhu MD Primary Care Provider [phone] Larry Gaspar MD Unavailable [phone] Cj Jerome MD Unavailable Allergies Active Allergy Reactions Criticality Noted Date Comments Oxytetracycline Hives Medium 07/03/2021 Tetracycline Hives High 09/04/2019 Medications simvastatin (ZOCOR) 40 mg tablet take 1 tablet by oral route every day in the evening 0 0 4 Active Additional Information Patient not taking.Informant: Self, Reported on 07/20/2023 lisinopril (PRINIVIL,ZESTRI L) 20 mg tablet take 1 tablet by oral route every day 0 0 4 Active apixaban (ELIQUIS) 5 mg tabletIndication s:VTE Prophylaxis Take 1 tablet (5 mg total) by mouth nightly 0 Active multivitamin capsuleIndicatio ns:Vitamin Deficiency Prevention Take 1 capsule by mouth nightly Active acetaminophen (TYLENOL) 325 mg tablet Take 2 tablets (650 mg total) by mouth every 6 (six) hours as needed for pain Active potassium gluconate 500 mg (83 mg) tablet Take 2 capsules by mouth Active oxyCODONE (ROXICODONE) 5 mg immediate release tabletIndication s:Pain Take 1 tablet (5 mg total) by mouth every 6 (six) hours as needed for pain (prior to radiation treatments) 40 tablet 4 Active ondansetron (ZOFRAN) 4 mg tablet Take 1 tablet (4 mg total) by mouth every 8 (eight) hours as needed for nausea or vomiting 30 tablet 4 Active venlafaxine XR (EFFEXOR-XR) 37.5 mg 24 hr capsule Take 1 capsule (37.5 mg total) by mouth daily 30 capsule 2 4 Active mirabegron ER (MYRBETRIQ) 50 mg tablet extended release 24 hrIndications:El evated PSA Take 1 tablet (50 mg total) by mouth daily 30 tablet 11 4 Active tamsulosin (FLOMAX) 0.4 mg extended release capsuleIndicatio ns:Elevated PSA Take 1 capsule (0.4 mg total) by mouth 2 (two) times a day for 14 days 28 capsule 4 Active Active Problems Problem Noted Date Diagnosed Date Prostate CA 09/17/2022 Cancer Staging:Clinical stage from 09/17/2022:Stage IIC(cT1c, cN0, cM0, PSA: 7.8, Grade Group: 3) - Signed by Larry Gaspar MD on 09/17/2022 Elevated PSA 07/05/2021 Overview (07/05/2021): Added automatically from request for surgery [id number] External otitis 07/03/2021 Acute deep vein thrombosis ( DVT) of proximal vein of right lower extremity 09/18/2019 Surgical History Surgery Date Site/Laterality Comments KNEE ARTHROSCOPY 03/22/2002 - 03/21/2003 Right Arthroscopy knee PROSTATE BIOPSY 03/22/2021 - 03/21/2022 COLONOSCOPY 03/22/2018 - 03/21/2019 TONSILLECTOMY LUMBAR DISCECTOMY 03/22/1993 - 03/21/1994 Medical History Medical History Date Comments Hx of blood clots at three diffe rent times/ has been on blood thinner ~ 15 years Hypertension DVT, bilateral lower limbs (HCC) Elevated prostate specific antigen (PSA) Obesity Wears glasses High cholesterol Allergic rhinitis Dental crown present not certain about crowns Prostate cancer (HCC) Family History Medical History Relation Name Comments Cancer Other Family history of Cancer, unknown; Relation Name Status Comments Other Social History Tobacco Use Types Packs/Day Years Used Date Smoking Tobacco: Never Smokeless Tobacco: Former Chew Tobacco Cessation:Counseling Given: Not Answered AUDIT-C Answer Date Recorded Q1: How often do you have a drink containing alc ohol? 2-4 times a month 09/17/2022 Average Number of Drinks Not on file 023 Frequency of Binge Drinking Not on file 08/21 Personal Safety Answer Date Recorded Have you ever been in or are you currently in a harmful physical or emotional relationship or is someone making you feel afraid or unsafe? Denies 08/18/2022 Sex and Gender Information Value Date Recorded Sex Assigned at Not on file Legal Sex Male 2:37 AM FAMILY AND CONSUMER SCIENCES PROFESSOR Gender Identity Male 07/01/2021 10:36 AM CDT Sexual Orientation Straight 07/01/2021 10 :36 AM CDT Obstetrics History Last Filed Vital Signs Vital Sign Reading Time Taken Comments Blood Pressure 151/51 10/14/2023 9:32 AM CDT Pulse 60 10/14/2023 9:32 AM CDT Temperature 36.6 ??C (97.9 ??F) 08/18/2022 2:20 PM CD T Respiratory Rate 18 06/02/2023 11:47 AM CDT Oxygen Saturation 100% 10/14/2023 9:32 AM CDT Inhaled Oxygen Concentration - - Weight 128.4 kg (283 lb) 10/14/2023 9:32 AM CDT Height 182.9 cm (6') 08/06/2022 3:00 PM CDT Body Mass Index 38.38 08/06/2022 3:00 PM CDT Plan of Treatment Health Maintenance Due Date Last Done Comments Colon Cancer Screening-Colonoscopy 1955 Depression Screening 1955 Hepatitis C Screening 1955 DTaP/Tdap/Td Vaccine (1 - Tdap) 02/15/1964 Hepatitis B Screening 1971 Well Visit 65+ 2018 Zoster Vaccine (2 of 2) 08/19/2021 06/24/2021 Fall Risk Assessment 08/19/2023 08/18/2022 Covid-19 Vaccine (5 - 2023-2 5 season) 2023 09/05/2021, 02/21/2021, 06/19/2020, Additional history exists Influenza Vaccine (#1) 2023 , 02/06/2020, 12/14/2018, Additional history exists Pneumococcal vaccine 65+ Completed 06/24/2021 Prostate Cancer Screening-PSA Discontinued , 11/18/2022, 07/31/2022, Additional history exists Procedures Procedure Name Priority Date/Time Associated Diagnosis Comments PSA DIAGNOSTIC Routine 10/14/2023 10:05 AM CDT Prostate CA (HCC) from Last 3 Months or Most Recently Relevant to Health Maintenance Results * PSA diagnostic (10/14/2023 10:05 AM CDT) PSA-Total <0.10 <=6.20 ng/mL Comment: Interpretive Data ?AGE ? SEX ?REFERENCE INTERVAL 0 minutes-150 years ?Female ?None 0 minutes-49 years ? Male ?None ? 50-59 years ? Male ?0-3.90 ? 60-69 years ? Male ?0-5.40 ? 70-79 years ? Male ?0-6.20 ? 80-150 years ?Male ?0-6.20 The [employer] PSA Total assay procedure was used. Results from different manufacturers or methods may not be comparable. Serial testing should be performed using the same method. Current interpretive data last revised 21. Testing performed by: [facility], [address] [place] [address]., [id number] Blood 10/14/2023 10:0 5 AM CDT 10/14/2023 1:36 PM CDT us Larry Gaspar MD LAB BLOOD ORDERABLES Final Res ult [facility] [address] [facility] Department [place] [address] from Last 3 Months or Most Recently Relevant to Health Maintenance Insurance [id number] [place] [address] MDCR HMO REF MEDICARE SOLUTIONS MEDICARE SOLUTIONS Care Teams Resource Specialist Relationship Specialty Start Date End Date Ruddy Sandhu MD [address] [place], [place] [id number] PCP - General 03/12/14 Larry Gaspar MD [facility] [address] [place] [address] Radiation Oncologist Radiation Oncology 05/19/23 Cj Jerome MD [address] [place] [address] Consulting Physician Urology 05/19/23
--- OUTSIDE RECORDS SUMMARY | 2024-04-13 21:24 | XMS_ITS ---
Author Organization [facility] [address] [place] [address] [place] [id number] Care Team Providers Care Academic Computing Director Name Role Phone Ruddy Sandhu MD Primary Care Provider [phone] Larry Gaspar MD Unavailable [phone] Cj Jerome MD Unavailable Active Problems Problem Noted Date Diagnosed Date Prostate CA 09/17/2022 Cancer Staging:Clinical stage from 09/17/2022:Stage IIC(cT1c, cN0, cM0, PSA: 7.8, Grade Group: 3) - Signed by Larry Gaspar MD on 09/17/2022 Elevated PSA 07/05/2021 Overview (07/05/2021): Added automatically from request for surgery [id number] External otitis 07/03/2021 Acute deep vein thrombosis ( DVT) of proximal vein of right lower extremity 09/18/2019 Current Oncology Plans Eligard Injection - 45 mg every 24 weeks* Plan Start Date:11/18/2022 Plan Provider:Larry Gaspar MD Linked Problems Prostate CA (HCC) Treatment Medications leuprolide acetate (6 month) (ELIGARD) Past Plans No past plan information found. Radiation Treatments * Plan Last Treated On Elapsed Days Fractions Treated Prescribed Fraction Dose Prescribed Total Dose PROSTATE_BST 08/27/2023 58 16 200 cGy 3,200 c Gy PELVIS 08/02/2023 33 23 200 cGy 4,600 cGy Reference Point Last Treated On Elapsed Days Session Dose Total Dose PROSTATE_BST_DPV 08/27/2023 58 200 cGy 3,200 cG y [id number] 08/02/2023 33 200 cGy 4,600 cGy
--- OUTSIDE RECORDS SUMMARY | 2024-04-13 21:24 | XMS_ITS | Referral Summary ---
Author Organization [facility] [address] [place] [address] [facility] [place] Address [address] [place] [address] Care Team Providers Care Barrel Stave Inspector Name Role Phone Ruddy Sandhu MD Primary Care Provider [phone] Larry Gaspar MD Unavailable [phone] Cj Jerome MD Unavailable Allergies Active [...] (07/05/2021): Added automatically from request for surgery [id number] External otitis 07/03/2021 Acute deep vein thrombosis ( DVT) of proximal vein of right lower extremity 09/18/2019 Social History Tobacco Use Types Packs/Day Years [...] on file Legal Sex Male 2:37 AM HEATER 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 Testing performed by: [facility], [address] [place] [address]., [id number] Blood 10/14/2023 10:0 5 AM CDT 10/14/2023 1:36 PM CDT us Larry Gaspar MD LAB BLOOD ORDERABLES Final Res ult [facility] [id number] [facility] Department of [employer] [place] [place] [address] from Last 3 Months or Most Recently Relevant to Health Maintenance Insurance [id number] MDCR HMO REF MEDICARE SOLUTIONS Care Teams Barrel Stave Inspector Relationship Specialty Start Date End Date Ruddy Sandhu MD [address] [place], [place] [id number] PCP - General 03/12/14 Larry Gaspar MD [facility] [address] Radiation Oncologist Radiation Oncology 05/19/23 Cj Jerome MD [facility] [address] [place] [address] Consulting Physician Urology 05/19/23
--- OUTSIDE RECORDS SUMMARY | 2024-04-13 21:24 | XMS_ITS | Encounter Summary ---
Author Organization [facility] Address [address] [place] [address] Care Team Providers Care Blood Donor Recruiter Supervisor Name Role Phone Ruddy Sandhu MD Primary Care Provider [phone] Larry Gaspar MD Unavailable [phone] Cj Jerome MD Unavailable Encounter Details Date Type Department Care Team (Late st Contact Info) Description 05/27/2023 Documentation [facility] Advanced Medicine Radiation Oncology [address] [facility] [place] [address] Jose Hanks, SYDNEE Social History Tobacco Use Types Packs/Day Years Used Date Smoking Tobacco: Never Smokeless Tobacco: Former Chew AUDIT-C Answer Date Recorded Q1: How often [...] on file Legal Sex Male 2:37 AM MEDIA ASSISTANT Gender Identity Male 07/01/2021 10:36 AM CDT Sexual Orientation Straight 07/01/2021 10 :36 AM CDT documented as of this encounter Plan of Treatment Not on file documented as of this encounter Visit Diagnoses Not on filedocumented in this encounter Care Teams Blood Donor Recruiter Supervisor Relationship Specialty Start Date End Date Ruddy Sandhu MD [address] [place] [address] PCP - General 03/12/14 Larry Gaspar MD [address] [facility] [address] [place] [address] Radiation Oncologist Radiation Oncology 05/19/23 Cj Jerome MD [address] [place] [address] Consulting Physician Urology 05/19/23 documented as of this encounter
--- OUTSIDE RECORDS SUMMARY | 2024-04-13 21:24 | XMS_ITS ---
Author Organization Unknown Address [address] [place], [place] [address] Phone Care Team Providers Care Substance Abuse Rn Name Role Phone PASHA Garcia Attending Unavailable Immunization Immunization Date Status Additional Notes Code Code System COVID-19, mRNA, LNP-S, PF, 1 00 mcg/0.5mL dose or 50 mcg/0.25mL dose 02/21/2021 Completed 207 CVX Influenza, high-dose, quadrivalent, PF 02/18/2021 Completed 197 CVX Influenza, split virus, quadrivalent, PF 12/29/2017 Completed 150 CVX Influenza, split virus, quadrivalent, PF 02/03/2016 Completed 150 CVX Influenza, split virus, trivalent, PF 11/13/2016 Completed 140 CVX Social History Type Status Start Date End Date Code Code Syst em Smoking History Never smoker (Never Smoked) 471924242 SNOMED CT Sex Male Medications Medication Start Date End Date Route Frequency Dose Code Code System Medication Instructions Home Meds Lisinopril 20MG Oral Tablet 11/23/2015 Unknown By mouth Daily 1 TABLET 474740 RxNorm 1 TABLET By mouth Daily Zocor 20MG Oral Tablet 11/23/2015 Unknown By mouth Daily 1 TABLET 858140 RxNorm 1 TABLE T By mouth Daily Xarelto 10MG Oral Tablet 11/23/2015 Unknown By mouth Daily 1 TABLET 2971329 RxNorm 1 TABLE T By mouth Daily Cipro 500MG Oral Tablet 09/10/2020 Unknown By mouth Twice a day 1 TABLET 193426 RxNorm 1 TABLET By mouth Twice a day x 14 days Flomax 0.4MG Oral Capsule 09/10/2020 Unknown By mouth Daily 1 CAPSULE 666524 RxNorm 1 CAP [place] By mouth Daily 30min after a meal Assessment You had the following problems:EXTERNAL OTITIS Hospital Discharge Instructions Should you have any questions prior to discharge, please contact a member of your healthcare team. If you have left the hospital and have any questions, please contact your primary care physician. Reason For Referral No Data Found Problems Problem Start Date Resolved Date Status Code Code System EXTERNAL OTITIS active [id number] SNOM ED-CT Allergies and Adverse Reactions Allergy Substance Reaction Severity Start Date Concern Status Co de Code System No Known Drug Allergies Mild Active 349440771 SNOMED-CT Plan of Treatment No Data Found Encounters Encounter Diagnosis Start Date Code Code Sys tem Hyperlipidemia 03/03/2021 [id number] SNOMED-CT Personal Care Team Section Performer Name Performer Role Active Date Inactive Da te
--- OUTSIDE RECORDS SUMMARY | 2024-04-13 21:24 | XMS_ITS | Clinical Summary ---
Author Organization [facility] Address [address] [place] [address]. 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 Gender Identity Not on file Sexual Orientation Not on file Last Filed Vital Signs Vital Sign Reading Time Taken Comments Blood Pressure 155/78 02/03/2017 9:34 AM 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 Pulse 54 02/03/2017 9:34 AM 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 Temperature 36.7 ??C (98.1 ??F) 02/03/2017 9:34 AM CS T Respiratory Rate 18 02/03/2017 9:34 AM 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 Oxygen Saturation 64% 02/03/2017 9:34 AM 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 Inhaled Oxygen Concentration - - Weight 125.2 kg (276 lb) 02/03/2017 9:34 AM 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 Height 182.9 cm (6') 02/03/2017 9:34 AM 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 Body Mass Index 37.43 02/03/2017 9:34 AM 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 Plan of Treatment Health Maintenance Due Date Last Done Comments Colorectal Cancer Screening Colonoscopy (10 Years) 1953 Hepatitis C 1971 DTaP, Tdap and Td Vaccines (1 - Tdap) 02/15/1972 Zoster Vaccines (1 of 2) 2003 Pneumococcal Vaccine: 65+ Years (1 of 1 - PCV) 2018 COVID-19 Vaccine ( season) 2023 02/21/2021, 06/19/2020, 05/21/2020 Influenza Adult (#1) 2023 12/14/2018, 12/29/2017, 11/13/2016, Additional history exists RSV Immunization or 60+ Years (1 - 1-dose 75+ series) 02/15/2028 Meningococcal Vaccine Aged Out No beatrice mak eligible based on patient's age to complete this topic RSV Immunizations Under 20 Months Aged Out No longer eligible based on patient's age to complete this topic Insurance [address] [place] [address] Care Teams Emergency Vehicle Operator Relationship Specialty Start Date End Date Ruddy Sandhu MD [address] [place] [address] PCP - General INTERNAL MEDICINE 02/03/17
== END 2024-04-12 07:52 | disposition home or self-care (01) ==
PROVIDERS: PCP Internal Medicine; Visit Provider Internal Medicine
DX: H90.3 Sensorineural hearing loss, bilateral (principal)
CPT/HCPCS: 92557; 92567

== ENCOUNTER 2024-09-08 11:39 | Emergency (ER) | payer MEDICARE, SELFPAY ==
[2024-09-08 11:47] VITALS: BP 121/74; PULSE 75; RESP 16; TEMP 36.6; O2SAT 97
--- NOTE | 2024-09-08 11:59 | ED_ITS ---
HPI - Ear Problem General Chief complaint: Ear Stated complaint: EARS CLOGGED Time Seen by Provider: 09/08/24 12:23 Source: patient and RN notes reviewed Mode of arrival: ambulatory Limitations: no limitations History of Present Illness HPI Narrative: 69-year-old male presents with concern for bilateral ear wax. Reports muscle hearing in his hearing aids giving clogged with wax. He denies pain or drainage. He reports he has been using drops at home without relief MD Complaint: ear pain Related Data Home Medications ?Medication ?Instructions ?Recorded ?Confirmed ?Last Taken ?Type tamsulosin 0.4 mg capsule 0.4 mg PO DAILY 01/06/22 06/12/24 Unknown History Allergies Allergy/AdvReac Type Severity Reaction Status Date / Time oxytetracycline Allergy Mild Hives Verified 09/08/24 12:06 tetracycline Allergy Unknown HIVES Verified 09/08/24 12:06 Review of Systems Review of Systems: CONSTITUTIONAL: Denies malaise, chills, sweats, or fever. EYES: Denies visual changes, redness, or discharge. ENT: Denies rhinorrhea, congestion, sinus pain, and sore throat. Reports bilateral ear fullness CARDIOVASCULAR: Denies chest pain, palpitations, or edema. RESPIRATORY: Denies cough. Denies dyspnea. GASTROINTESTINAL: Denies abdominal pain, nausea, vomiting, diarrhea SKIN: Denies rash or itching. MUSCULOSKELETAL: Denies myalgia. NEUROLOGIC: Denies headache. All systems reviewed & are unremarkable except as noted in HPI and below PMFSH Past Medical History Medical History Chronic anticoagulation Vitamin D deficiency, unspecified Swimmer's ear, bilateral Rt inguinal pain Pure hypercholesterolemia Other fatigue Other abnormal glucose Hyperkalemia Hyperglycemia History of DVT (deep vein thrombosis) Essential (primary) hypertension Encounter for screening for malignant neoplasm of prostate Chronic left hip pain Annual physical exam Prostate cancer Cellulitis of right lower leg Chronic anticoagulation Previously with Xarelto due to multiple DVTs in the past. With his new DVT 05/22/19, he was switched to Eliquis. Hyperlipidemia Degenerative disc disease Deep vein thrombosis Other DVTs in the past. New right lower extremity DVT 05/22/19. Denies history of PE. Hypertension Surgical History Surgical History History of back surgery (~2004) History of arthroscopy of right knee Around 2007 History of tonsillectomy As a child Family History Family History Mother Hypertension Social History Social History Social History: Mr. 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 He reports occasional alcohol use on special occasions, usually less than 1 drink per week. Never smoker, denies substance use. His PCP is Dr Sandhu. He designates his , Cordelia, as his surrogate decision maker and wishes to be full code status. Smoking status: Never smoker Second hand tobacco smoke exposure: No Alcohol intake: current Drinks per week: 1 Substance use: never Lack of Transportation: No Current Housing: Decline to Answer Concerned About Future Housing: Decline to Answer Difficulty Paying Gas/Electric Bills: Decline to Answer Difficulty Paying for Meds: Decline to Answer Currently Unemployed: Decline to Answer Education: Decline to Answer Difficulty w/ Childcare or Family Care: Decline to Answer Living arrangements: with family Occupation/Education: retired Gender identity (if verbalized by the patient): Male Spiritual care concerns: No Agree to blood products: Yes Comments At time of signature, agree with nursing past medical, surgical, social and family history. There is no relevant family history pertinent to the presenting complaint Exam Narrative: GENERAL: Well-appearing, well-nourished, and in no acute distress. HEAD: Normocephalic EYES: PERRLA, conjunctivae clear ENT: Nares clear, turbinates edematous, clear discharge. Mucous membranes moist. TM pearly ferrell with dull light reflex bilaterally; no tragal tenderness. Oropharynx not erythematous without lesions. Tonsils not enlarged and without exudate, no drooling, no hoarseness, no trismus, uvula midline. NECK: Supple. No lymphadenopathy CHEST: Clear to auscultation, breath sounds equal. No wheezing, rhonchi, rales, or stridor. No respiratory distress, speaks in full sentences. HEART: Regular rate and rhythm. No murmur heard. SKIN: Warm, dry, no rash. NEURO: Alert and oriented x3. PSYCH: Normal mood and affect Course Course Emergency Course: Patient is aware of diagnosis, understands and agrees to treatment plan. Anticipatory guidance given. Patient agrees to follow-up as directed and is aware of reasons to seek care at the emergency department. Portions of this record may have been created with voice recognition software Level of Care: [facility] Department Visit Vital Signs Vital signs: Vital Signs Temperature 97.9 F 09/08/24 11:47 Pulse Rate 75 09/08/24 11:47 Respiratory Rate 16 09/08/24 11:47 Blood Pressure 121/74 09/08/24 11:47 Pulse Oximetry 97 09/08/24 11:47 Temperature 97.9 F 09/08/24 11:47 Pulse Rate 75 09/08/24 11:47 Respiratory Rate 16 09/08/24 11:47 Blood Pressure 121/74 09/08/24 11:47 Pulse Oximetry 97 09/08/24 11:47 Reviewed. Procedures Ear Wax Removal Both Ears: Ear Wax Removal Date: 09/08/24 Ear Wax Removal Time: 12:35 Cerumenolytic Used: 5-10% Sodium Bicarb solution Results: Re-examined: cerumen removed completely (From the left ear) and some cerumen remains (In the right ear) TM Examination: TM(s) intact, normal appearance Ear Canal Exam: atraumatic (In the left) and other (Some excoriation noted in the right ear, procedure discontinued) Patient Tolerated Procedure: well Complications: no problems Technique: ear canal irrigated and ear canal curetted Medical Decision Making MDM Narrative Medical decision making narrative: I evaluated this in the [facility]. History is obtained from patient who is an independent historian and physical exam was performed.? Available medical records were reviewed. ? Exam findings and relevant testing show no acute concerns or changes; patient is non-toxic appearing and is in no distress. Differential diagnosis considered: Barrett virus, strep pharyngitis, allergic rhinitis, upper respiratory tract infection, sinusitis, rhinosinusitis, nasopharyngitis. viral pharyngitis, otitis media, otitis externa, otitis effusion, cerumen impaction, foreign body. Exam findings show no acute concerns or changes; patient is non-toxic appearing and is in no distress. Patient is appropriate for outpatient treatment and follow-up. ? Differential diagnosis and treatment plan were discussed with the patient. Patient agrees with discussion and after shared medical decision making agrees with plan of care. All questions were answered to the patient's satisfaction. Patient is appropriate for outpatient treatment and follow-up. Vital Signs Vital Signs: Vital Signs Temperature 97.9 F 09/08/24 11:47 Pulse Rate 75 09/08/24 11:47 Respiratory Rate 16 09/08/24 11:47 Blood Pressure 121/74 09/08/24 11:47 Pulse Oximetry 97 09/08/24 11:47 Temperature 97.9 F 09/08/24 11:47 Pulse Rate 75 09/08/24 11:47 Respiratory Rate 16 09/08/24 11:47 Blood Pressure 121/74 09/08/24 11:47 Pulse Oximetry 97 09/08/24 11:47 Critical Care Time Critical Care Time Critical Care Time: No Discharge Plan Discharge Clinical Impression: Bilateral impacted cerumen Patient Disposition: Home Condition: Stable Instructions: How to Use Ear Drops (ED) Additional Instructions: Ear wax impaction is when ear wax builds up enough to cause symptoms. Normally, ear wax helps to protect the insides of the ears and prevents injury or infection. But having too much ear wax can cause symptoms such as pain and trouble hearing. The medical term for ear wax is cerumen. The insides of the ears do not usually need to be cleaned. Sticking anything into the ears can push the wax in deeper and cause impaction. How is ear wax impaction treated? There are several treatments to remove impacted ear wax. Treatment is usually only needed if the impaction is causing bothersome symptoms. Treatment is not recommended for removing ear wax in people who have no symptoms, even if their ears are impacted. There are several different ways to remove ear wax: ?Ear drops - Special ear drops can soften ear wax and help it to drain out. Ear drops are not usually safe for people with an ear infection or damage to the eardrum. ?Rinsing - In some cases, a doctor or nurse can remove impacted ear wax by squirting water (or a special liquid) into the ear to rinse it out. ?Special tools - A doctor or nurse might use a special tool to remove ear wax. There are different types of tools that can do this safely. These include small sticks, hooks, and spoons. There are also tools that use suction to pull the wax out. If you have recurrent cerumen impaction and no significant ear disease, you can use hydrogen peroxide to soften the wax so it comes out on its own. Do not put any tools on q-tips into your ears. Please use any drops that may have been prescribed to you. Follow up with your doctor if you have any new symptoms or concerns. Patient Language: Australian Prescriptions: No Action tamsulosin 0.4 mg capsule 0.4 mg PO DAILY simvastatin 40 mg tablet 40 mg PO QPM Qty: 100 3RF lisinopril 20 mg tablet 20 mg PO QPM Qty: 100 3RF clotrimazole-betamethasone 1-0.05 % cream 1 applic topical BID Qty: 45 0RF oxycodone 5 mg tablet 5 mg PO Q8H PRN (Reason: pain) Qty: 40 0RF Eliquis 5 mg tablet 5 mg PO Q12HR Qty: 180 2RF Follow-up/Referrals: Gonzalez Larsen DO [Primary Care Provider] - Time of Disposition: 13:12
== END 2024-09-08 13:23 | disposition home or self-care (01) ==
PROVIDERS: Emergency Provider Nurse Practitioner; PCP Internal Medicine
DX: H61.23 Impacted cerumen, bilateral (principal); I10 Essential (primary) hypertension; E78.00 Pure hypercholesterolemia, unspecified; Z79.01 Long term (current) use of anticoagulants; Z86.718 Personal history of other venous thrombosis and embolism; Z85.46 Personal history of malignant neoplasm of prostate
CPT/HCPCS: 69210; 99212; G0463